=== PATIENT | female | born 1935 | race Caucasian/White ===

== ENCOUNTER 2016-09-18 10:54 | Inpatient (IN) | payer MEDICARE, OTHER ==
[~2016-09-18] VITALS: Ht 132.1 cm; Wt 44.4 kg
[2016-09-18 11:45] VITALS: BP 118/90
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
[2016-09-18] MEDS ORDERED: LIDO5DIS41 TD (12:59)
[2016-09-18] MEDS ORDERED: ALBU17IN INH ×2 (12:59→13:16)
[2016-09-18] MEDS ORDERED: PREDOPD OU (12:59)
[2016-09-18] MEDS ORDERED: MIRA33504 PO (12:59)
[2016-09-18] MEDS ORDERED: ASPI81CH PO (12:59)
[2016-09-18] MEDS ORDERED: EYECAP PO (13:16)
[2016-09-18] MEDS ORDERED: GLUC15002 PO (13:16)
[2016-09-18] MEDS ORDERED: LASI20TA PO (13:16)
[2016-09-18] MEDS ORDERED: POTA20TA PO (13:16)
[2016-09-18] MEDS ORDERED: ADVA115A INH (13:16)
[2016-09-18] MEDS ORDERED: OXYC-517 PO (13:16)
[2016-09-18] MEDS ORDERED: SENN1TAB10 PO (13:16)
[2016-09-18] MEDS ORDERED: PANT40TA2 PO (13:16)
[2016-09-18] MEDS ORDERED: PROL60SO SC (13:16)
[2016-09-18] MEDS ORDERED: LORA10TA2 PO (13:16)
[2016-09-18] MEDS ORDERED: GARL400T2 PO (13:16)
[2016-09-18] MEDS ORDERED: TYLE325T5 PO (13:16)
[2016-09-18] MEDS ORDERED: EPIN1DRO OU (13:16)
[2016-09-18] MEDS ORDERED: OMEG100011 PO (13:16)
[2016-09-18] MEDS ORDERED: LECI1200 PO (13:16)
[2016-09-18] MEDS ORDERED: VITMTA PO (13:16)
[2016-09-18] MEDS ORDERED: COLA100C5 PO (13:16)
[2016-09-18] MEDS ORDERED: CALC1TAB63 PO (13:16)
[2016-09-18] MEDS ORDERED: LOVE1INJ2 SC (13:16)
[2016-09-18] MEDS ORDERED: MELA1TAB PO (13:16)
[2016-09-18] MEDS ORDERED: VITATAB11 PO (13:19)
[2016-09-18] MEDS ORDERED: VITA500T88 PO (13:19)
[2016-09-18] MEDS ORDERED: RANI150T PO (13:19)
[2016-09-18] MEDS ORDERED: [UNRECOGNIZED DRUG - CODE] PO (13:19)
[2016-09-18] MEDS ORDERED: TARTCAP PO (13:19)
[2016-09-18] MEDS ORDERED: VITA200015 PO (13:19)
[2016-09-18 14:00] VITALS: BP 146/64
[2016-09-18] MEDS: oxyCODONE 5MG TAB PO PRN ×2 (15:41→22:14)
[2016-09-18] MEDS: prednisoLONE ACET 1% OPHTH SUSP 5ML OU SCH ×2 (17:16→20:05)
[2016-09-18] MEDS: ALBUTEROL 90 MCG/ACT 8GM HFA INHALER INH PRN (17:29)
[2016-09-18] MEDS: ADVAIR HFA 115/21MCG INHALER INH SCH (19:43)
[2016-09-18] MEDS: ALBUTEROL 90 MCG/ACT 8GM HFA INHALER INH SCH (19:44)
[2016-09-18 20:00] VITALS: BP 127/55
[2016-09-18] MEDS: ACETAMINOPHEN TAB 650MG DOSE (2X325MG) PO PRN (20:03)
[2016-09-18] MEDS: METOPROLOL SUCC *XL* 12.5MG PER 1/2 TAB (TopROL *XL*) PO SCH (20:04)
[2016-09-18] MEDS: ENOXAPARIN 30 MG/0.3 ML SYR (J1650) SC SCH (20:04)
[2016-09-18] MEDS: SENNA 8.6 MG TAB (SENOKOT) PO SCH (20:04)
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
[2016-09-19 04:39] VITALS: BP 143/74
[2016-09-19 06:48] LABS: BASO % 0.4 % (0.0-1.0); EOS # 0.5 K/mm3 (0.0-0.50); EOS % 6.5 % (0.0-3.0); LARGE UNSTAINED CELL # 0.3 K/mm3 (0.0-0.4); LARGE UNSTAINED CELL % 3.6 % (0.0-4.0); LYMPH # 1.7 K/mm3 (1.5-4.5); LYMPH % 22.6 % (24.0-44.0); MEAN CORPUSCULAR HEMOGLOBIN 30.8 pg (27.0-33.0); MEAN CORPUSCULAR HGB CONC 33.6 g/dl (32.0-36.5); MEAN CORPUSCULAR VOLUME 91.7 fl (80.0-96.0); MONO # 0.5 K/mm3 (0.0-0.8); MONO % 6.7 % (0.0-5.0); NEUTROPHILS # 4.4 K/mm3 (1.8-7.7); NEUTROPHILS % 60.1 % (36.0-66.0); PLATELET COUNT, AUTOMATED 445 k/mm3 (150-450); RED CELL DISTRIBUTION WIDTH 13.6 % (11.5-14.5); WHITE BLOOD COUNT 7.3 K/mm3 (4.0-10.0)
[2016-09-19 07:05] LABS: ALBUMIN 2.5 GM/DL (3.2-5.2); ALBUMIN/GLOBULIN RATIO 0.64 (1.00-1.93); ALKALINE PHOSPHATASE 78 U/L (45-117); ALT/SGPT 104 U/L (12-78); ANION GAP 6 MEQ/L (8-16); AST/SGOT 85 U/L (15-37); BILIRUBIN,TOTAL 0.2 MG/DL (0.2-1.0); BLOOD UREA NITROGEN 11 MG/DL (7-18); CALCIUM LEVEL 8.8 MG/DL (8.8-10.2); CARBON DIOXIDE LEVEL 28 MEQ/L (21-32); CHLORIDE LEVEL 94 MEQ/L (98-107); CREATININE FOR GFR 0.49 MG/DL (0.55-1.02); GLOMERULAR FILTRATION RATE > 60.0 (>32); GLUCOSE, FASTING 84 MG/DL (83-110); POTASSIUM SERUM 4.3 MEQ/L (3.5-5.1); SODIUM LEVEL 128 MEQ/L (136-145); TOTAL PROTEIN 6.4 GM/DL (6.4-8.2)
[2016-09-19] MEDS: ADVAIR HFA 115/21MCG INHALER INH SCH ×2 (07:28→19:35)
[2016-09-19] MEDS: SENNA 8.6 MG TAB (SENOKOT) PO SCH ×2 (08:49→21:49)
[2016-09-19] MEDS: CALCIUM/VITAMIN D 500 MG TAB PO SCH (08:49)
[2016-09-19] MEDS: MULTIVITAMINS/MINERALS THERAP 1 TAB PO SCH (08:49)
[2016-09-19] MEDS: OMEPRAZOLE 20 MG CAP PO SCH (08:49)
[2016-09-19] MEDS: LORATADINE 10 MG TAB PO SCH (08:50)
[2016-09-19] MEDS: FUROSEMIDE 20 MG TAB PO SCH (08:50)
[2016-09-19] MEDS: ENOXAPARIN 30 MG/0.3 ML SYR (J1650) SC SCH ×2 (08:50→21:50)
[2016-09-19] MEDS: OMEGA-3 1050MG CAPSULE PO SCH (08:50)
[2016-09-19] MEDS: ASPIRIN 81 MG ENTERIC TAB PO SCH (08:50)
[2016-09-19] MEDS: VITAMIN B COMPLEX/VIT C CAP PO SCH (08:51)
[2016-09-19] MEDS: POTASSIUM CHLORIDE 10 MEQ SR TABLET PO SCH (08:51)
[2016-09-19] MEDS: VITAMIN D 1,000 INTERNATIONAL UNITS TABLET PO SCH (08:51)
[2016-09-19] MEDS: MIRALAX *UNIT DOSE* 17GM PACKET PO SCH (08:52)
[2016-09-19] MEDS: METOPROLOL SUCC *XL* 12.5MG PER 1/2 TAB (TopROL *XL*) PO SCH ×2 (08:52→21:49)
[2016-09-19] MEDS: prednisoLONE ACET 1% OPHTH SUSP 5ML OU SCH ×4 (09:25→21:50)
[2016-09-19 11:42] LABS: OSMOLALITY URINE 229 MOSM/KG (500-800)
[2016-09-19 11:55] LABS: CORTISOL BASELINE 14.2 UG/DL (4.3-22.4)
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
[2016-09-19 14:00] VITALS: BP 122/65
[2016-09-19] MEDS ORDERED: COSYNTROPIN 0.25 MG/ML VIAL (J0835) IV ONE (14:00)
--- NOTE | 2016-09-19 14:30 | IPNPDOC ---
Subjective Date Seen The patient was seen on 09/19/16. Subjective Chief Complaint/HPI The patient is a 81-year-old female admitted with a reason for visit of TBI. Events since last encounter Feeling ok, has cough, worked with therapy, tolerating diet, no complaint except to ask for tissues Constitutional: Denies: Chills, Fever Pulmonary: Reports: Cough, Denies: Dyspnea Cardiovascular: Denies: Chest Pain, Palpitations Gastrointestinal: Denies: Nausea, Vomiting, Abdominal Pain Objective Physical Examination General Exam: Positive: Alert, Cooperative, No Acute Distress ENT Exam: Positive: Pharynx Normal Chest Exam: Positive: Diminished, Negative: Rales, Rhonchi, Wheezing Heart Exam: Positive: Rate Normal, Regular Rhythm, Normal S1, Normal S2 Abdomen Exam: Positive: Normal bowel sounds, Soft, Negative: Tenderness Extremity Exam: Negative: Edema Assessment /Plan Problems (1) Hyponatremia Status: Acute Problem Text: Possible adrenal insufficiency- cosyntropin stim test order sick euthyroid Less likely cerebral salt wasting on diuretic (2) PAF (paroxysmal atrial fibrillation) Status: Chronic Problem Text: noted in [place] on asa (3) Closed TBI (traumatic brain injury) Status: Acute (4) Ribs, multiple fractures Status: Acute (5) Fracture, thoracic vertebra, compression Status: Acute (6) Fracture of spinous process of thoracic vertebra Status: Acute (7) Right pulmonary contusion Status: Acute Problem Text: history of asthma, has cough, order incentive spirometry (8) SDH (subdural hematoma) Status: Acute (9) HTN (hypertension) Status: Chronic Plan/VTE VTE Prophylaxis Ordered?: Yes VS, I&O, 24H, [facility] Vital Signs/I&O Vital Signs Date Time Temp Pulse Resp B/P (MAP) Pulse Ox O2 Delivery O2 Flow Rate FiO2 09/19/16 09:00 Room Air 09/19/16 08:52 78 143/74 09/19/16 04:39 97.5 18 97 I&O- Last 24 Hours up to 6 AM 09/19/16 06:00 Intake Total 1130 ml Output Total 2475 ml Balance -1345 ml Laboratory Data 24H LABS Laboratory Tests 2 09/18/16 15:18: Urine Appearance CLEAR, Urine Color STRAW, Urine pH 6.0, Urine Specific [place] 1.008, Urine Protein NEGATIVE, Urine Glucose (UA) NEGATIVE, Urine Ketones NEGATIVE, Urine Urobilinogen 0.2, Urine Bilirubin NEGATIVE, Urine Leukocyte Esterase 1+H, Urine Blood NEGATIVE, Urine Nitrite NEGATIVE, Urine WBC (Auto) 5H , Urine RBC (Auto) 1, Urine Hyaline Casts (Auto) 0, Urine Bacteria (Auto) NEGATIVE, Urine Squamous Epithelial Cells 0, Urine Mucus (Auto) SMALL, Urine Sperm (Auto) 09/19/16 06:20: White Blood Count 7.3, Red Blood Count 2.87L, Hemoglobin 8.8L, Hematocrit 26.3L , Mean Corpuscular Volume 91.7, Mean Corpuscular Hemoglobin 30.8, Mean Corpuscular Hemoglobin Concent 33.6, Red Cell Distribution Width 13.6, Platelet Count 445, Neutrophils (%) (Auto) 60.1, Lymphocytes (%) (Auto) 22.6L, Monocytes (%) (Auto) 6.7H, Eosinophils (%) (Auto) 6.5H, Basophils (%) (Auto) 0.4, Neutrophils # (Auto) 4.4, Lymphocytes # (Auto) 1.7, Monocytes # (Auto) 0.5, Eosinophils # (Auto) 0.5, Basophils # (Auto) 0.0, Large Unclassified Cells % 3.6 , Large Unclassified Cells # 0.3, Anion Gap 6L, Glomerular Filtration Rate > 60.0, Blood Urea Nitrogen 11, Creatinine 0.49L, Sodium Level 128L, Potassium Level 4.3, Chloride Level 94L, Carbon Dioxide Level 28, Calcium Level 8.8, Aspartate Amino Transf (AST/SGOT) 85H, Alanine Aminotransferase (ALT/SGPT) 104H , Alkaline Phosphatase 78, Total Bilirubin 0.2, Total Protein 6.4, Albumin 2.5L , Albumin/Globulin Ratio 0.64L, Thyroid Stimulating Hormone (TSH) 4.300H 09/19/16 10:52: Osmolality 267L, Cortisol Response to Stimulation (T 14.2 09/19/16 11:20: Urine Random Osmolality 229L, Urine Random Sodium 43 09/19/16 13:52: CBC/BMP Laboratory Tests 09/19/16 06:20 Red Blood Count 2.87 L, Mean Corpuscular Volume 91.7, Mean Corpuscular Hemoglobin 30.8, Mean Corpuscular Hemoglobin Concent 33.6, Red Cell Distribution Width 13.6, Neutrophils (%) (Auto) 60.1, Lymphocytes (%) (Auto) 22.6 L, Monocytes (%) (Auto) 6.7 H, Eosinophils (%) (Auto) 6.5 H, Basophils (%) (Auto) 0.4, Neutrophils # (Auto) 4.4, Lymphocytes # (Auto) 1.7, Monocytes # ( Auto) 0.5, Eosinophils # (Auto) 0.5, Basophils # (Auto) 0.0, Calcium Level 8.8, Aspartate Amino Transf (AST/SGOT) 85 H, Alanine Aminotransferase (ALT/SGPT) 104 H, Alkaline Phosphatase 78, Total Bilirubin 0.2, Total Protein 6.4, Albumin 2.5 L ANNE ALEXANDER MD September 19, 2016 14:30
[2016-09-19 14:36] LABS: FREE T4 0.96 NG/DL (0.76-1.46)
[2016-09-19] MEDS: oxyCODONE 5MG TAB PO PRN (15:23)
[2016-09-19] MEDS: ALBUTEROL 90 MCG/ACT 8GM HFA INHALER INH SCH (19:31)
--- NOTE | 2016-09-19 19:41 | ECGEPIP ---
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 ABNORMAL RHYTHM ECG Electronically Signed On 09-19-2016 19:41:22 EDT by Rashi Paz
[2016-09-19 20:00] VITALS: BP 119/81
[2016-09-20] MEDS: ACETAMINOPHEN TAB 650MG DOSE (2X325MG) PO PRN ×4 (00:37→23:14)
[2016-09-20] MEDS: oxyCODONE 5MG TAB PO PRN (05:14)
[2016-09-20 06:00] VITALS: BP 155/68
[2016-09-20 06:34] LABS: MEAN CORPUSCULAR HEMOGLOBIN 30.6 pg (27.0-33.0); MEAN CORPUSCULAR HGB CONC 32.8 g/dl (32.0-36.5); MEAN CORPUSCULAR VOLUME 93.1 fl (80.0-96.0); RED CELL DISTRIBUTION WIDTH 13.7 % (11.5-14.5); WHITE BLOOD COUNT 10.7 K/mm3 (4.0-10.0)
[2016-09-20 06:41] LABS: ANION GAP 8 MEQ/L (8-16); BLOOD UREA NITROGEN 13 MG/DL (7-18); CARBON DIOXIDE LEVEL 28 MEQ/L (21-32); CHLORIDE LEVEL 93 MEQ/L (98-107); GLOMERULAR FILTRATION RATE > 60.0 (>32); GLUCOSE, FASTING 85 MG/DL (83-110); POTASSIUM SERUM 4.2 MEQ/L (3.5-5.1); SODIUM LEVEL 129 MEQ/L (136-145)
[2016-09-20] MEDS: OMEGA-3 1050MG CAPSULE PO SCH (08:58)
[2016-09-20] MEDS: CALCIUM/VITAMIN D 500 MG TAB PO SCH (08:58)
[2016-09-20] MEDS: ENOXAPARIN 30 MG/0.3 ML SYR (J1650) SC SCH ×2 (08:58→21:52)
[2016-09-20] MEDS: OMEPRAZOLE 20 MG CAP PO SCH (08:58)
[2016-09-20] MEDS: MIRALAX *UNIT DOSE* 17GM PACKET PO SCH (08:58)
[2016-09-20] MEDS: ASPIRIN 81 MG ENTERIC TAB PO SCH (08:59)
[2016-09-20] MEDS: LORATADINE 10 MG TAB PO SCH (08:59)
[2016-09-20] MEDS: VITAMIN B COMPLEX/VIT C CAP PO SCH (08:59)
[2016-09-20] MEDS: SENNA 8.6 MG TAB (SENOKOT) PO SCH ×2 (08:59→21:52)
[2016-09-20] MEDS: FUROSEMIDE 20 MG TAB PO SCH (08:59)
[2016-09-20] MEDS: POTASSIUM CHLORIDE 10 MEQ SR TABLET PO SCH (08:59)
[2016-09-20] MEDS: METOPROLOL SUCC *XL* 12.5MG PER 1/2 TAB (TopROL *XL*) PO SCH ×2 (09:00→21:00)
[2016-09-20] MEDS: VITAMIN D 1,000 INTERNATIONAL UNITS TABLET PO SCH (09:00)
[2016-09-20] MEDS: MULTIVITAMINS/MINERALS THERAP 1 TAB PO SCH (09:00)
[2016-09-20] MEDS: prednisoLONE ACET 1% OPHTH SUSP 5ML OU SCH ×4 (09:00→21:53)
[2016-09-20] MEDS: ADVAIR HFA 115/21MCG INHALER INH SCH ×2 (10:03→20:17)
[2016-09-20] MEDS: ALBUTEROL 90 MCG/ACT 8GM HFA INHALER INH SCH ×2 (10:04→20:17)
--- NOTE | 2016-09-20 11:29 | IPNPDOC ---
Subjective Date Seen The patient was seen on 09/20/16. Subjective Chief Complaint/HPI The patient is a 81-year-old female admitted with a reason for visit of TBI. Events since last encounter Feeling well, no complaint, wants to dance again, grand-daughter at bedside thinks she looks more energetic Constitutional: Denies: Chills, Fever Pulmonary: Denies: Dyspnea, Cough Cardiovascular: Denies: Chest Pain, Palpitations Gastrointestinal: Reports: Constipation, Denies: Nausea, Vomiting Objective Physical Examination General Exam: Positive: Alert, Cooperative, No Acute Distress ENT Exam: Positive: Atraumatic Chest Exam: Positive: Other (rested, speaking in completed sentences, no accessory muscle use) Assessment /Plan Problems (1) Hyponatremia Status: Acute Problem Text: No adrenal insufficiency- based on cosyntropin stim test sick euthyroid Less likely cerebral salt wasting on diuretic Possible SIADH or similar related to head trauma- will avoid fluid restriction currently due to concern about recent head trauma/vasospasm Follow labs (2) PAF (paroxysmal atrial fibrillation) Status: Chronic Problem Specific Plan: Monitor Clinically Problem Text: noted in [place] on asa (3) Closed TBI (traumatic brain injury) Status: Acute (4) Ribs, multiple fractures Status: Acute Problem Text: pain reasonably controlled (5) Fracture, thoracic vertebra, compression Status: Acute (6) Fracture of spinous process of thoracic vertebra Status: Acute (7) Right pulmonary contusion Status: Acute Problem Text: history of asthma, has cough, order incentive spirometry (8) SDH (subdural hematoma) Status: Acute (9) HTN (hypertension) Status: Chronic (10) Constipation Plan/VTE VTE Prophylaxis Ordered?: Yes VS, I&O, 24H, [facility] Vital Signs/I&O Vital Signs Date Time Temp Pulse Resp B/P (MAP) Pulse Ox O2 Delivery O2 Flow Rate FiO2 09/20/16 09:00 75 155/68 09/20/16 08:30 Room Air 09/20/16 06:00 98.9 18 97 I&O- Last 24 Hours up to 6 AM 09/20/16 06:00 Intake Total 1620 ml Output Total 2200 ml Balance -580 ml Laboratory Data 24H LABS Bad tableCBC/BMP Laboratory Tests 09/20/16 06:16 Red Blood Count 2.87 L, Mean Corpuscular Volume 93.1, Mean Corpuscular Hemoglobin 30.6, Mean Corpuscular Hemoglobin Concent 32.8, Red Cell Distribution Width 13.7, Calcium Level 9.0 ANNE ALEXANDER MD September 20, 2016 11:29
[2016-09-20] MEDS ORDERED: MOM 30ML SUSPENSION UDC PO PRN (11:30)
[2016-09-20] MEDS ORDERED: FLEET ENEMA PR PRN (11:30)
[2016-09-20] MEDS ORDERED: BISACODYL 10 MG SUPP PR PRN (11:30)
[2016-09-20] MEDS: ALBUTEROL 90 MCG/ACT 8GM HFA INHALER INH PRN (12:20)
[2016-09-20 14:25] VITALS: BP 128/60
[2016-09-20 22:00] VITALS: BP 110/53
[2016-09-21] MEDS: ACETAMINOPHEN TAB 650MG DOSE (2X325MG) PO PRN ×3 (04:07→17:40)
[2016-09-21 06:00] VITALS: BP 148/67
[2016-09-21 06:43] LABS: MEAN CORPUSCULAR HEMOGLOBIN 30.1 pg (27.0-33.0); MEAN CORPUSCULAR HGB CONC 32.2 g/dl (32.0-36.5); MEAN CORPUSCULAR VOLUME 93.3 fl (80.0-96.0); RED CELL DISTRIBUTION WIDTH 13.8 % (11.5-14.5)
[2016-09-21 06:55] LABS: ANION GAP 7 MEQ/L (8-16); BLOOD UREA NITROGEN 18 MG/DL (7-18); CALCIUM LEVEL 8.5 MG/DL (8.8-10.2); CARBON DIOXIDE LEVEL 28 MEQ/L (21-32); CHLORIDE LEVEL 94 MEQ/L (98-107); CREATININE FOR GFR 0.62 MG/DL (0.55-1.02); GLOMERULAR FILTRATION RATE > 60.0 (>32); GLUCOSE, FASTING 82 MG/DL (83-110); POTASSIUM SERUM 4.6 MEQ/L (3.5-5.1); SODIUM LEVEL 129 MEQ/L (136-145)
[2016-09-21] MEDS: ADVAIR HFA 115/21MCG INHALER INH SCH ×2 (08:29→19:29)
[2016-09-21] MEDS: ALBUTEROL 90 MCG/ACT 8GM HFA INHALER INH SCH ×2 (08:29→19:29)
[2016-09-21] MEDS: ENOXAPARIN 30 MG/0.3 ML SYR (J1650) SC SCH ×2 (08:49→20:27)
[2016-09-21] MEDS: prednisoLONE ACET 1% OPHTH SUSP 5ML OU SCH ×4 (09:02→20:28)
[2016-09-21] MEDS: MIRALAX *UNIT DOSE* 17GM PACKET PO SCH (09:05)
[2016-09-21] MEDS: OMEPRAZOLE 20 MG CAP PO SCH (09:07)
[2016-09-21] MEDS: VITAMIN D 1,000 INTERNATIONAL UNITS TABLET PO SCH (09:07)
[2016-09-21] MEDS: SENNA 8.6 MG TAB (SENOKOT) PO SCH ×2 (09:07→18:54)
[2016-09-21] MEDS: VITAMIN B COMPLEX/VIT C CAP PO SCH (09:07)
[2016-09-21] MEDS: ASPIRIN 81 MG ENTERIC TAB PO SCH (09:07)
[2016-09-21] MEDS: LORATADINE 10 MG TAB PO SCH (09:07)
[2016-09-21] MEDS: METOPROLOL SUCC *XL* 12.5MG PER 1/2 TAB (TopROL *XL*) PO SCH ×2 (09:08→20:26)
[2016-09-21] MEDS: OMEGA-3 1050MG CAPSULE PO SCH (09:08)
[2016-09-21] MEDS: POTASSIUM CHLORIDE 10 MEQ SR TABLET PO SCH (09:08)
[2016-09-21] MEDS: CALCIUM/VITAMIN D 500 MG TAB PO SCH (09:08)
[2016-09-21] MEDS: MULTIVITAMINS/MINERALS THERAP 1 TAB PO SCH (09:08)
[2016-09-21] MEDS: FUROSEMIDE 20 MG TAB PO SCH (09:09)
[2016-09-21 14:00] VITALS: BP 125/66
[2016-09-21 20:00] VITALS: BP 130/58
[2016-09-22] MEDS: oxyCODONE 5MG TAB PO PRN ×2 (04:22→10:40)
[2016-09-22 06:00] VITALS: BP 152/62
[2016-09-22 06:26] LABS: MEAN CORPUSCULAR HEMOGLOBIN 30.5 pg (27.0-33.0); MEAN CORPUSCULAR HGB CONC 32.6 g/dl (32.0-36.5); MEAN CORPUSCULAR VOLUME 93.5 fl (80.0-96.0); RED CELL DISTRIBUTION WIDTH 13.9 % (11.5-14.5); WHITE BLOOD COUNT 11.9 K/mm3 (4.0-10.0)
[2016-09-22 06:39] LABS: ANION GAP 7 MEQ/L (8-16); BLOOD UREA NITROGEN 16 MG/DL (7-18); CALCIUM LEVEL 8.5 MG/DL (8.8-10.2); CARBON DIOXIDE LEVEL 27 MEQ/L (21-32); CHLORIDE LEVEL 96 MEQ/L (98-107); CREATININE FOR GFR 0.55 MG/DL (0.55-1.02); GLOMERULAR FILTRATION RATE > 60.0 (>32); GLUCOSE, FASTING 83 MG/DL (83-110); POTASSIUM SERUM 4.4 MEQ/L (3.5-5.1); SODIUM LEVEL 130 MEQ/L (136-145)
[2016-09-22] MEDS: ADVAIR HFA 115/21MCG INHALER INH SCH ×2 (08:17→19:35)
[2016-09-22] MEDS: ALBUTEROL 90 MCG/ACT 8GM HFA INHALER INH SCH ×2 (08:17→21:00)
[2016-09-22] MEDS: ENOXAPARIN 30 MG/0.3 ML SYR (J1650) SC SCH ×2 (08:23→21:12)
[2016-09-22] MEDS: prednisoLONE ACET 1% OPHTH SUSP 5ML OU SCH ×4 (08:23→21:12)
[2016-09-22] MEDS: LORATADINE 10 MG TAB PO SCH (08:24)
[2016-09-22] MEDS: MULTIVITAMINS/MINERALS THERAP 1 TAB PO SCH (08:24)
[2016-09-22] MEDS: CALCIUM/VITAMIN D 500 MG TAB PO SCH (08:24)
[2016-09-22] MEDS: METOPROLOL SUCC *XL* 12.5MG PER 1/2 TAB (TopROL *XL*) PO SCH ×2 (08:24→21:12)
[2016-09-22] MEDS: ASPIRIN 81 MG ENTERIC TAB PO SCH (08:24)
[2016-09-22] MEDS: VITAMIN B COMPLEX/VIT C CAP PO SCH (08:24)
[2016-09-22] MEDS: OMEPRAZOLE 20 MG CAP PO SCH (08:24)
[2016-09-22] MEDS: POTASSIUM CHLORIDE 10 MEQ SR TABLET PO SCH (08:25)
[2016-09-22] MEDS: MIRALAX *UNIT DOSE* 17GM PACKET PO SCH (08:25)
[2016-09-22] MEDS: VITAMIN D 1,000 INTERNATIONAL UNITS TABLET PO SCH (08:25)
[2016-09-22] MEDS: SENNA 8.6 MG TAB (SENOKOT) PO SCH ×2 (08:25→21:00)
[2016-09-22] MEDS: FUROSEMIDE 20 MG TAB PO SCH (08:25)
[2016-09-22] MEDS: OMEGA-3 1050MG CAPSULE PO SCH (08:26)
[2016-09-22 09:20] LABS: OSMOLALITY URINE 331 MOSM/KG (500-800)
--- NOTE | 2016-09-22 13:28 | IPNPDOC ---
Subjective Date Seen The patient was seen on 09/22/16. Subjective Chief Complaint/HPI The patient is a 81-year-old female admitted with a reason for visit of TBI. Events since last encounter Feeling well, working with therapy, has increased urinary frequency, tolerating diet Constitutional: Denies: Chills Pulmonary: Denies: Dyspnea, Cough Cardiovascular: Denies: Chest Pain, Palpitations Gastrointestinal: Denies: Nausea, Vomiting, Abdominal Pain Objective Physical Examination General Exam: Positive: Alert, Cooperative, No Acute Distress ENT Exam: Positive: Atraumatic Chest Exam: Positive: Other (rested, speaking in completed sentences, no accessory muscle use) Assessment /Plan Problems (1) Hyponatremia Status: Acute Problem Text: No adrenal insufficiency- based on cosyntropin stim test sick euthyroid Less likely cerebral salt wasting on diuretic Possible SIADH or similar related to head trauma- will avoid fluid restriction currently due to concern about recent head trauma/vasospasm Follow labs, and i/os (2) PAF (paroxysmal atrial fibrillation) Status: Chronic Problem Specific Plan: Monitor Clinically Problem Text: regular on exam, noted in [place] on asa (3) Closed TBI (traumatic brain injury) Status: Acute (4) Ribs, multiple fractures Status: Acute Problem Text: pain reasonably controlled (5) Fracture, thoracic vertebra, compression Status: Acute (6) Fracture of spinous process of thoracic vertebra Status: Acute (7) Right pulmonary contusion Status: Acute Problem Text: history of asthma, has cough, order incentive spirometry (8) SDH (subdural hematoma) Status: Acute (9) HTN (hypertension) Status: Chronic (10) Constipation Plan/VTE VTE Prophylaxis Ordered?: Yes VS, I&O, 24H, [facility] Vital Signs/I&O Vital Signs Date Time Temp Pulse Resp B/P (MAP) Pulse Ox O2 Delivery O2 Flow Rate FiO2 09/22/16 11:15 18 09/22/16 09:00 Room Air 09/22/16 08:24 79 152/62 09/22/16 06:00 98.9 96 I&O- Last 24 Hours up to 6 AM 09/22/16 06:00 Intake Total 1930 ml Output Total 2350 ml Balance -420 ml Laboratory Data 24H LABS Laboratory Tests 2 09/22/16 06:06: Anion Gap 7L, Glomerular Filtration Rate > 60.0, Blood Urea Nitrogen 16, Creatinine 0.55, Sodium Level 130L, Potassium Level 4.4, Chloride Level 96L, Carbon Dioxide Level 27, Calcium Level 8.5L 09/22/16 08:47: Urine Appearance CLEAR, Urine Color STRAW, Urine pH 8.0, Urine Specific [place] 1.008, Urine Protein NEGATIVE, Urine Glucose (UA) NEGATIVE, Urine Ketones NEGATIVE, Urine Urobilinogen 0.2, Urine Bilirubin NEGATIVE, Urine Leukocyte Esterase TRACEH, Urine Blood NEGATIVE, Urine Nitrite NEGATIVE, Urine WBC (Auto) 2, Urine RBC (Auto) 1, Urine Hyaline Casts (Auto) 0, Urine Bacteria (Auto) 1+H, Urine Squamous Epithelial Cells 0, Urine Sperm (Auto) , Urine Random Osmolality 331L, Urine Random Sodium 63 CBC/BMP Laboratory Tests 09/22/16 06:06 Red Blood Count 2.67 L, Mean Corpuscular Volume 93.5, Mean Corpuscular Hemoglobin 30.5, Mean Corpuscular Hemoglobin Concent 32.6, Red Cell Distribution Width 13.9, Calcium Level 8.5 L ANNE ALEXANDER MD September 22, 2016 13:28
[2016-09-22 14:00] VITALS: BP 114/57
[2016-09-22 20:00] VITALS: BP 147/63
[2016-09-23] MEDS: oxyCODONE 5MG TAB PO PRN ×3 (04:40→21:48)
[2016-09-23 06:00] VITALS: BP 150/61
[2016-09-23 06:02] LABS: MEAN CORPUSCULAR HEMOGLOBIN 30.7 pg (27.0-33.0); MEAN CORPUSCULAR HGB CONC 32.7 g/dl (32.0-36.5); MEAN CORPUSCULAR VOLUME 93.8 fl (80.0-96.0)
[2016-09-23 06:18] LABS: ANION GAP 7 MEQ/L (8-16); BLOOD UREA NITROGEN 18 MG/DL (7-18); CALCIUM LEVEL 9.1 MG/DL (8.8-10.2); CARBON DIOXIDE LEVEL 29 MEQ/L (21-32); CHLORIDE LEVEL 97 MEQ/L (98-107); CREATININE FOR GFR 0.58 MG/DL (0.55-1.02); GLOMERULAR FILTRATION RATE > 60.0 (>32); GLUCOSE, FASTING 87 MG/DL (83-110); POTASSIUM SERUM 4.4 MEQ/L (3.5-5.1); SODIUM LEVEL 133 MEQ/L (136-145)
[2016-09-23] MEDS: ADVAIR HFA 115/21MCG INHALER INH SCH ×2 (07:13→19:51)
[2016-09-23] MEDS: ALBUTEROL 90 MCG/ACT 8GM HFA INHALER INH SCH ×2 (07:13→21:49)
[2016-09-23] MEDS: OMEPRAZOLE 20 MG CAP PO SCH (09:01)
[2016-09-23] MEDS: ASPIRIN 81 MG ENTERIC TAB PO SCH (09:01)
[2016-09-23] MEDS: MULTIVITAMINS/MINERALS THERAP 1 TAB PO SCH (09:01)
[2016-09-23] MEDS: FUROSEMIDE 20 MG TAB PO SCH (09:01)
[2016-09-23] MEDS: ENOXAPARIN 30 MG/0.3 ML SYR (J1650) SC SCH ×2 (09:01→21:48)
[2016-09-23] MEDS: SENNA 8.6 MG TAB (SENOKOT) PO SCH ×2 (09:01→21:48)
[2016-09-23] MEDS: OMEGA-3 1050MG CAPSULE PO SCH (09:01)
[2016-09-23] MEDS: VITAMIN D 1,000 INTERNATIONAL UNITS TABLET PO SCH (09:01)
[2016-09-23] MEDS: METOPROLOL SUCC *XL* 12.5MG PER 1/2 TAB (TopROL *XL*) PO SCH ×2 (09:02→21:49)
[2016-09-23] MEDS: POTASSIUM CHLORIDE 10 MEQ SR TABLET PO SCH (09:02)
[2016-09-23] MEDS: CALCIUM/VITAMIN D 500 MG TAB PO SCH (09:02)
[2016-09-23] MEDS: LORATADINE 10 MG TAB PO SCH (09:02)
[2016-09-23] MEDS: VITAMIN B COMPLEX/VIT C CAP PO SCH (09:02)
[2016-09-23] MEDS: prednisoLONE ACET 1% OPHTH SUSP 5ML OU SCH ×4 (09:03→21:48)
--- NOTE | 2016-09-23 11:09 | IPNPDOC ---
Subjective Date Seen The patient was seen on 09/23/16. Subjective Chief Complaint/HPI The patient is a 81-year-old female admitted with a reason for visit of TBI. Events since last encounter Pt currently with PT. States since this AM she has had some Left shoulder pain. She does not c/o pain otherwise. ENT: Denies: Head Aches, Dysphagia Pulmonary: Denies: Dyspnea, Cough Cardiovascular: Denies: Chest Pain, Palpitations, Orthopnea, Paroxysmal Noc. Dyspnea, Lt Headedness Gastrointestinal: Denies: Nausea, Vomiting, Abdominal Pain, Diarrhea, Constipation Genitourinary: Denies: Dysuria, Frequency, Incontinence, Retention Objective Physical Examination General Exam: Positive: Alert, Cooperative, No Acute Distress ENT Exam: Positive: Atraumatic Chest Exam: Positive: Clear to auscultation, Other (rested, speaking in completed sentences, no accessory muscle use) Heart Exam: Positive: Rate Normal Assessment /Plan Problems (1) Hyponatremia Status: Acute Problem Text: No adrenal insufficiency- based on cosyntropin stim test sick euthyroid Less likely cerebral salt wasting on diuretic Possible SIADH or similar related to head trauma- will avoid fluid restriction currently due to concern about recent head trauma/vasospasm Follow labs, and i/os labs improved today- monitor. (2) PAF (paroxysmal atrial fibrillation) Status: Chronic Problem Specific Plan: Monitor Clinically Problem Text: PAF noted in [place] regular on exam, rates in 70s asa 81mg Metoprolol 12.5 BID with hold parameters. (3) Closed TBI (traumatic brain injury) Status: Acute (4) Ribs, multiple fractures Status: Acute Problem Text: pain reasonably controlled (5) Fracture, thoracic vertebra, compression Status: Acute (6) Fracture of spinous process of thoracic vertebra Status: Acute (7) Right pulmonary contusion Status: Acute Problem Text: history of asthma, has cough, order incentive spirometry (8) SDH (subdural hematoma) Status: Acute (9) HTN (hypertension) Status: Chronic Problem Text: * Lasix/Metoprolol. * BP 114/57-150/61 * monitor. (10) Constipation Plan/VTE VTE Prophylaxis Ordered?: Yes VS, I&O, 24H, [facility] Vital Signs/I&O Vital Signs Date Time Temp Pulse Resp B/P (MAP) Pulse Ox O2 Delivery O2 Flow Rate FiO2 09/23/16 09:02 79 150/61 09/23/16 09:00 Room Air 09/23/16 06:00 98.9 18 95 I&O- Last 24 Hours up to 6 AM 09/23/16 05:59 Intake Total 1150 ml Output Total 50 ml Balance 1100 ml Laboratory Data 24H LABS Laboratory Tests 2 09/23/16 05:50: Anion Gap 7L, Glomerular Filtration Rate > 60.0, Blood Urea Nitrogen 18, Creatinine 0.58, Sodium Level 133L, Potassium Level 4.4, Chloride Level 97L, Carbon Dioxide Level 29, Calcium Level 9.1 CBC/BMP Laboratory Tests 09/23/16 05:50 Red Blood Count 2.69 L, Mean Corpuscular Volume 93.8, Mean Corpuscular Hemoglobin 30.7, Mean Corpuscular Hemoglobin Concent 32.7, Red Cell Distribution Width 14.0, Calcium Level 9.1 Yulia Aguillon September 23, 2016 11:09
--- NOTE | 2016-09-23 13:00 | IPNPDOC ---
[employer] Progress Note DATE OF SERVICE: 09/23/16 DATE OF ADMISSION: September 18, 2016 at 11:16 INPATIENT REHABILITATION ADMISSION DAY: #5 SUBJECTIVE: Patient is a 81-year-old white female with will try including subdural hematoma, T1 and T3 fractures of the spinous process and vertebral body respectively. Also right first through sixth rib and 11th rib fractures with right pulmonary contusion and left first rib fracture and sternal contusion. Patient reports some pain and stiffness in her shoulders that she was receiving lidocaine patches for at the prior hospital which was helpful to her otherwise no complaints today. ALLERGIES: See Below MEDICATIONS: Reviewed, see below. OBJECTIVE: VITAL SIGNS: Please see below. PHYSICAL EXAMINATION: GENERAL: Short elderly white female but for the leaning posture and kyphosis of the thorax who is alert and well oriented and in mild musculoskeletal distress. HEENT: Scalp hematoma is going through some resolution that patient now showing some ecchymoses around the eyes. CARDIOVASCULAR: Regular rate and rhythm with normal S1 and S2. 2/4 bilateral radial pulses. LUNGS: All hankins clear to auscultation. ABDOMEN: Benign with normal bowel sounds in all quadrants. NEUROLOGICAL: Patient is oriented 3 in general with a little difficulty with some elements of time and situation. Speech is clear coherent and appropriate. Affect shows a slightly mild flattening but in general patient is pleasant cooperative in working hard in therapies. Patient tends to lean forward onto her rolling walker. SKIN: Some reduction in the scalp hematoma in size but spreading from it more ecchymosis including around the eyes that is more purplish-brown in color LABORATORY DATA: Reviewed. Please see below. MICROBIOLOGY: Please see below. IMAGING: No new imaging. DVT prophylaxis ordered?: Aspirin, Lovenox and VENKAT hose. ASSESSMENT AND PLAN: 1. Rehabilitation of subdural hematoma: Patient cognitively seems to be doing well and has good attention and alertness and appears to be learning what is being taught in therapy. 2. Rehabilitation multiple trauma: I will go ahead and order some lightheaded during patch usage to help with neck and shoulder pain. 3. Moderate anemia: Patient remained stable at 8.3 and 25.2 for her H&H we will need to continue watching this especially in light of Lovenox. 4. Mild hyponatremia: Of note patient sodium was 133 today and this will need to be rechecked in the future. TIME SPENT: Chart Review, examination and documentation requires greater than 25 minutes. Allergies Coded Allergies: Aspirin (Verified Allergy, Severe, ASTHMA ATTACK, 07/30/12) Codeine (Verified Allergy, Severe, ASTHMA ATTACK, 07/30/12) Penicillins (Verified Allergy, Severe, SOB, 07/30/12) Penicillins Cross Reactors (Verified Allergy, Severe, SOB, 07/30/12) Sulfa Drugs (Verified Allergy, Mild, WEAK, 07/30/12) Sulfa Drugs Cross Reactors (Verified Allergy, Mild, WEAK, 07/30/12) Aminoglycosides (Unverified Allergy, Unknown, 07/30/12) Bacitracin (Unverified Allergy, Unknown, 07/30/12) Neomycin (Unverified Allergy, Unknown, 07/30/12) Polymyxin B (Unverified Allergy, Unknown, 07/30/12) Procaine (Verified Allergy, Unknown, 07/30/12) Vital Signs Vital Signs Date Time Temp Pulse Resp B/P (MAP) Pulse Ox O2 Delivery O2 Flow Rate FiO2 09/23/16 12:00 20 09/23/16 09:02 79 150/61 09/23/16 09:00 Room Air 09/23/16 06:00 98.9 95 Laboratory Data CBC/BMP Laboratory Tests 09/23/16 05:50 Red Blood Count 2.69 L, Mean Corpuscular Volume 93.8, Mean Corpuscular Hemoglobin 30.7, Mean Corpuscular Hemoglobin Concent 32.7, Red Cell Distribution Width 14.0, Calcium Level 9.1 Labs 24H Laboratory Tests 2 09/23/16 05:50: Anion Gap 7L, Glomerular Filtration Rate > 60.0, Blood Urea Nitrogen 18, Creatinine 0.58, Sodium Level 133L, Potassium Level 4.4, Chloride Level 97L, Carbon Dioxide Level 29, Calcium Level 9.1 Current Medications Current Medications Current Medications Acetaminophen (Tylenol Tab) 650 mg Q4HP PRN PO MILD PAIN (PS 1-4) Last administered on 09/21/16 17:40; Start 09/18/16 at 12:30; Stop 10/18/16 at 12:29 Albuterol Sulfate (Proventil, Ventolin Hfa) 2 puff BID INH Last administered on 09/23/16 07:13; Start 09/18/16 at 21:00; Stop 10/18/16 at 20:59 Albuterol Sulfate (Proventil, Ventolin Hfa) 2 puff Q6HP PRN INH SHORTNESS OF BREATH Last administered on 09/20/16 12:20; Start 09/18/16 at 12:30; Stop 10/18 at 12:29 Aspirin (Ecotrin) 81 mg DAILY PO Last administered on 09/23/16 09:01; Start at 09:00; Stop 10/19/16 at 08:59 Bisacodyl (Dulcolax Suppository) 10 mg DAILYPRN PRN [place] CONSTIPATION; Start at 11:30; Stop 10/20/16 at 11:29 Calcium/Vitamin D (Oscal D) 500 mg DAILY PO Last administered on 09/23/16 09: 02; Start 09/19/16 at 09:00; Stop 10/19/16 at 08:59 Enoxaparin Sodium (Lovenox) 30 mg BID SC Last administered on 09/23/16 09:01; Start 09/18/16 at 21:00; Stop 09/27/16 at 20:59 Fish Oil ([place]-3 (1050mg)) 1 ea DAILY PO Last administered on 09/23/16 09:01 ; Start 09/19/16 at 09:00; Stop 10/19/16 at 08:59 Furosemide (Lasix) 20 mg DAILY PO Last administered on 09/23/16 09:01; Start 09/19/16 at 09:00; Stop 10/19/16 at 08:59 Home Med (Med Rec Complete!) ASDIRECTED XX ; Start 09/18/16 at 13:30; Stop at 13:30; Status DC Loratadine (Claritin) 10 mg DAILY PO Last administered on 09/23/16 09:02; Start 09/19/16 at 09:00; Stop 10/19/16 at 08:59 Magnesium Hydroxide (Milk Of Magnesia) 30 ml DAILYPRN PRN PO CONSTIPATION; Start 09/20/16 at 11:30; Stop 10/20/16 at 11:29 Metoprolol Succinate (TopROL XL) 12.5 mg BID PO Last administered on 09/23/16 09:02; Start 09/18/16 at 21:00; Stop 10/18/16 at 20:59 Multivitamins (Theragram-M) 1 tab DAILY PO Last administered on 09/23/16 09:01 ; Start 09/19/16 at 09:00; Stop 10/19/16 at 08:59 Omeprazole (PriLOSEC) 20 mg DAILY PO Last administered on 09/23/16 09:01; Start 09/19/16 at 09:00; Stop 10/19/16 at 08:59 Oxycodone HCl (Roxicodone, Oxyir) 5 mg Q6HP PRN PO PAIN SCALE 6-10 Last administered on 09/23/16 11:27; Start 09/18/16 at 12:30; Stop 09/30/16 at 12:00 Polyethylene Glycol (Miralax) 1 pkt DAILY PO Last administered on 09/21/16 09: 05; Start 09/19/16 at 09:00; Stop 09/22/16 at 23:55; Status DC Potassium Chloride (Micro-K Extencaps) 20 meq DAILY PO Last administered on 09:02; Start 09/19/16 at 09:00; Stop 10/19/16 at 08:59 Prednisolone Acetate (Predforte 1% Ophth Susp) 1 drop QID OU Last administered on 09/23/16 12:47; Start 09/18/16 at 17:00; Stop 10/02/16 at 16:59 Salmeterol Xinafoate/ Fluticasone (Advair Hfa 115/ 21) 2 puff BID INH Last administered on 09/23/16 07:13; Start 09/18/16 at 21:00; Stop 10/18/16 at 20:59 Senna (Senokot) 1 tab BID PO Last administered on 09/23/16 09:01; Start at 21:00; Stop 10/18/16 at 20:59 Sodium Biphosphate/ Sodium Phosphate (Fleet Enema) 1 ENEMA DAILYPRN PRN [place] CONSTIPATION; Start 09/20/16 at 11:30; Stop 10/20/16 at 11:29 Vitamin B Complex/ Vitamin C (Therapeutic B Complex w/C) 1 cap DAILY PO Last administered on 09/23/16 09:02; Start 09/19/16 at 09:00; Stop 10/19/16 at 08:59 Vitamin D (Vitamin D) 2,000 units DAILY PO Last administered on 09/23/16 09:01 ; Start 09/19/16 at 09:00; Stop 10/19/16 at 08:59 VALERY YAO MD September 23, 2016 13:00
[2016-09-23] MEDS: LIDOCAINE 5% (LIDODERM) PATCH TD SCH (13:21)
[2016-09-23 14:00] VITALS: BP 116/58
[2016-09-23 21:30] VITALS: BP 124/58
[2016-09-23] MEDS: **NOTE PATIENT COMMENT** MISC XX SCH (21:49)
[2016-09-24 06:00] VITALS: BP 122/65
[2016-09-24 07:02] LABS: MEAN CORPUSCULAR HEMOGLOBIN 30.8 pg (27.0-33.0); MEAN CORPUSCULAR HGB CONC 32.6 g/dl (32.0-36.5); MEAN CORPUSCULAR VOLUME 94.5 fl (80.0-96.0); RED CELL DISTRIBUTION WIDTH 14.1 % (11.5-14.5); WHITE BLOOD COUNT 10.7 K/mm3 (4.0-10.0)
[2016-09-24 07:30] LABS: ANION GAP 7 MEQ/L (8-16); BLOOD UREA NITROGEN 18 MG/DL (7-18); CALCIUM LEVEL 9.3 MG/DL (8.8-10.2); CARBON DIOXIDE LEVEL 30 MEQ/L (21-32); CHLORIDE LEVEL 97 MEQ/L (98-107); CREATININE FOR GFR 0.58 MG/DL (0.55-1.02); GLOMERULAR FILTRATION RATE > 60.0 (>32); GLUCOSE, FASTING 88 MG/DL (83-110); POTASSIUM SERUM 4.7 MEQ/L (3.5-5.1); SODIUM LEVEL 134 MEQ/L (136-145)
[2016-09-24] MEDS: ADVAIR HFA 115/21MCG INHALER INH SCH ×2 (08:24→19:09)
[2016-09-24] MEDS: ALBUTEROL 90 MCG/ACT 8GM HFA INHALER INH SCH ×2 (08:25→22:09)
[2016-09-24] MEDS: ENOXAPARIN 30 MG/0.3 ML SYR (J1650) SC SCH ×2 (08:52→22:09)
[2016-09-24] MEDS: prednisoLONE ACET 1% OPHTH SUSP 5ML OU SCH ×4 (08:54→22:07)
[2016-09-24] MEDS: LIDOCAINE 5% (LIDODERM) PATCH TD SCH (08:55)
[2016-09-24] MEDS: MULTIVITAMINS/MINERALS THERAP 1 TAB PO SCH (08:59)
[2016-09-24] MEDS: OMEGA-3 1050MG CAPSULE PO SCH (08:59)
[2016-09-24] MEDS: VITAMIN D 1,000 INTERNATIONAL UNITS TABLET PO SCH (08:59)
[2016-09-24] MEDS: OMEPRAZOLE 20 MG CAP PO SCH (09:00)
[2016-09-24] MEDS: SENNA 8.6 MG TAB (SENOKOT) PO SCH ×3 (09:00→22:08)
[2016-09-24] MEDS: METOPROLOL SUCC *XL* 12.5MG PER 1/2 TAB (TopROL *XL*) PO SCH ×2 (09:00→22:08)
[2016-09-24] MEDS: FUROSEMIDE 20 MG TAB PO SCH (09:00)
[2016-09-24] MEDS: CALCIUM/VITAMIN D 500 MG TAB PO SCH (09:00)
[2016-09-24] MEDS: POTASSIUM CHLORIDE 10 MEQ SR TABLET PO SCH (09:01)
[2016-09-24] MEDS: ASPIRIN 81 MG ENTERIC TAB PO SCH (09:02)
[2016-09-24] MEDS: VITAMIN B COMPLEX/VIT C CAP PO SCH (09:06)
[2016-09-24] MEDS: LORATADINE 10 MG TAB PO SCH (09:07)
--- NOTE | 2016-09-24 11:54 | IPNPDOC ---
Subjective Date Seen The patient was seen on 09/24/16. Subjective Chief Complaint/HPI The patient is a 81-year-old female admitted with a reason for visit of TBI. Events since last encounter Patient is currently participating with physical therapy. Ambulating in the hallway. She states she gets tired after doing activity, denies chest pain, shortness of breath, abdominal pain. No urinary complaints. Denies diarrhea or constipation. Eating and drinking well. Objective Physical Examination General Exam: Positive: Alert, Cooperative, No Acute Distress ENT Exam: Positive: Atraumatic Chest Exam: Positive: Clear to auscultation, Other (rested, speaking in completed sentences, no accessory muscle use) Heart Exam: Positive: Rate Normal, Regular Rhythm Neuro Exam: Positive: Other (ambulating with assistance) Assessment /Plan Problems (1) Hyponatremia Status: Acute Problem Text: No adrenal insufficiency- based on cosyntropin stim test sick euthyroid Less likely cerebral salt wasting on diuretic Possible SIADH or similar related to head trauma- will avoid fluid restriction currently due to concern about recent head trauma/vasospasm Follow labs, and i/os labs improved today- monitor. (2) PAF (paroxysmal atrial fibrillation) Status: Chronic Problem Specific Plan: Monitor Clinically Problem Text: PAF noted in [place] regular on exam, rates in 70s-80s asa 81mg Metoprolol 12.5 BID with hold parameters. (3) Closed TBI (traumatic brain injury) Status: Acute (4) Ribs, multiple fractures Status: Acute Problem Text: pain reasonably controlled (5) Fracture, thoracic vertebra, compression Status: Acute (6) Fracture of spinous process of thoracic vertebra Status: Acute (7) Right pulmonary contusion Status: Acute Problem Text: history of asthma, has cough, order incentive spirometry (8) SDH (subdural hematoma) Status: Acute (9) HTN (hypertension) Status: Chronic Problem Text: * Lasix * Metoprolol with hold parameters. * monitor. (10) Constipation Plan/VTE VTE Prophylaxis Ordered?: Yes VS, I&O, 24H, Fishbone Vital Signs/I&O Vital Signs Date Time Temp Pulse Resp B/P (MAP) Pulse Ox O2 Delivery O2 Flow Rate FiO2 09/24/16 09:27 Room Air 09/24/16 09:00 82 90/50 09/24/16 06:00 97.6 18 99 I&O- Last 24 Hours up to 6 AM 09/24/16 05:59 Intake Total 1020 ml Balance 1020 ml Laboratory Data 24H LABS Laboratory Tests 2 09/24/16 06:36: Anion Gap 7L, Glomerular Filtration Rate > 60.0, Blood Urea Nitrogen 18, Creatinine 0.58, Sodium Level 134L, Potassium Level 4.7, Chloride Level 97L, Carbon Dioxide Level 30, Calcium Level 9.3 CBC/BMP Laboratory Tests 09/24/16 06:36 Red Blood Count 2.84 L, Mean Corpuscular Volume 94.5, Mean Corpuscular Hemoglobin 30.8, Mean Corpuscular Hemoglobin Concent 32.6, Red Cell Distribution Width 14.1, Calcium Level 9.3 Yulia Aguillon September 24, 2016 11:54
[2016-09-24] MEDS: oxyCODONE 5MG TAB PO PRN ×2 (12:19→22:31)
--- NOTE | 2016-09-24 13:29 | IPNPDOC ---
[employer] Progress Note DATE OF SERVICE: 09/24/16 DATE OF ADMISSION: September 18, 2016 at 11:16 INPATIENT REHABILITATION ADMISSION DAY: #6 SUBJECTIVE: Patient is a 81-year-old white female with will try including subdural hematoma, T1 and T3 fractures of the spinous process and vertebral body respectively. Also right first through sixth rib and 11th rib fractures with right pulmonary contusion and left first rib fracture and sternal contusion. Patient reports some pain and stiffness in her shoulders that she was receiving lidocaine patches for at the prior hospital which was helpful to her otherwise no complaints today. ALLERGIES: See Below MEDICATIONS: Reviewed, see below. OBJECTIVE: VITAL SIGNS: Please see below. PHYSICAL EXAMINATION: GENERAL: Short elderly white female but for the leaning posture and kyphosis of the thorax who is alert and well oriented and in mild musculoskeletal distress. HEENT: Scalp hematoma is going through some resolution. The patient is showing some ecchymoses around her eyes. CARDIOVASCULAR: Regular rate and rhythm with normal S1 and S2. 2/4 bilateral radial pulses. LUNGS: All hankins clear to auscultation. ABDOMEN: Benign with normal bowel sounds in all quadrants. NEUROLOGICAL: Patient is oriented 3 in general with a little difficulty with some elements of time and situation. Speech is clear coherent and appropriate. Affect shows a slightly mild flattening but in general patient is pleasant cooperative in working hard in therapies. Patient tends to lean forward onto her rolling walker. SKIN: Some further reduction in the scalp hematoma in size, but it continues to be spreading out with more ecchymosis around the eyes, that is more purplish- brown in color. LABORATORY DATA: Reviewed. Please see below. MICROBIOLOGY: Please see below. IMAGING: No new imaging. DVT prophylaxis ordered?: Aspirin, Lovenox and VENKAT hose. ASSESSMENT AND PLAN: 1. Rehabilitation of subdural hematoma: Patient cognitively seems to be doing well and has good attention and alertness and appears to be learning what is being taught in therapy. Her endurance also is increasing. 2. Rehabilitation multiple trauma: I will go ahead and order some lidoderm patch usage to help her with neck and shoulder pain. 3. Moderate anemia: Patient improved at 8.8 and 26.8% for her H&H from yesterday 's level of 8.3 & 25.2%. We will need to continue watching this especially in light of ongoing Lovenox treatment. 4. Mild hyponatremia: Of note patient sodium was 134 today up from 133 yesterday. TIME SPENT: Chart Review, examination and documentation minutes. Allergies Coded Allergies: Aspirin (Verified Allergy, Severe, ASTHMA ATTACK, 07/30/12) Codeine (Verified Allergy, Severe, ASTHMA ATTACK, 07/30/12) Penicillins (Verified Allergy, Severe, SOB, 07/30/12) Penicillins Cross Reactors (Verified Allergy, Severe, SOB, 07/30/12) Sulfa Drugs (Verified Allergy, Mild, WEAK, 07/30/12) Sulfa Drugs Cross Reactors (Verified Allergy, Mild, WEAK, 07/30/12) Aminoglycosides (Unverified Allergy, Unknown, 07/30/12) Bacitracin (Unverified Allergy, Unknown, 07/30/12) Neomycin (Unverified Allergy, Unknown, 07/30/12) Polymyxin B (Unverified Allergy, Unknown, 07/30/12) Procaine (Verified Allergy, Unknown, 07/30/12) Vital Signs Vital Signs Date Time Temp Pulse Resp B/P (MAP) Pulse Ox O2 Delivery O2 Flow Rate FiO2 09/24/16 12:19 20 09/24/16 09:27 Room Air 09/24/16 09:00 82 90/50 09/24/16 06:00 97.6 99 Laboratory Data CBC/BMP Laboratory Tests 09/24/16 06:36 Red Blood Count 2.84 L, Mean Corpuscular Volume 94.5, Mean Corpuscular Hemoglobin 30.8, Mean Corpuscular Hemoglobin Concent 32.6, Red Cell Distribution Width 14.1, Calcium Level 9.3 Labs 24H Laboratory Tests 2 09/24/16 06:36: Anion Gap 7L, Glomerular Filtration Rate > 60.0, Blood Urea Nitrogen 18, Creatinine 0.58, Sodium Level 134L, Potassium Level 4.7, Chloride Level 97L, Carbon Dioxide Level 30, Calcium Level 9.3 Current Medications Current Medications Current Medications Acetaminophen (Tylenol Tab) 650 mg Q4HP PRN PO MILD PAIN (PS 1-4) Last administered on 09/21/16 17:40; Start 09/18/16 at 12:30; Stop 10/18/16 at 12:29 Albuterol Sulfate (Proventil, Ventolin Hfa) 2 puff BID INH Last administered on 09/24/16 08:25; Start 09/18/16 at 21:00; Stop 10/18/16 at 20:59 Albuterol Sulfate (Proventil, Ventolin Hfa) 2 puff Q6HP PRN INH SHORTNESS OF BREATH Last administered on 09/20/16 12:20; Start 09/18/16 at 12:30; Stop 10/18 at 12:29 Aspirin (Ecotrin) 81 mg DAILY PO Last administered on 09/24/16 09:02; Start at 09:00; Stop 10/19/16 at 08:59 Bisacodyl (Dulcolax Suppository) 10 mg DAILYPRN PRN [place] CONSTIPATION; Start at 11:30; Stop 10/20/16 at 11:29 Calcium/Vitamin D (Oscal D) 500 mg DAILY PO Last administered on 09/24/16 09: 00; Start 09/19/16 at 09:00; Stop 10/19/16 at 08:59 Enoxaparin Sodium (Lovenox) 30 mg BID SC Last administered on 09/24/16 08:52; Start 09/18/16 at 21:00; Stop 09/27/16 at 20:59 Fish Oil ([place]-3 (1050mg)) 1 ea DAILY PO Last administered on 09/24/16 08:59 ; Start 09/19/16 at 09:00; Stop 10/19/16 at 08:59 Furosemide (Lasix) 20 mg DAILY PO Last administered on 09/23/16 09:01; Start 09/19/16 at 09:00; Stop 10/19/16 at 08:59 Home Med (Med Rec Complete!) ASDIRECTED XX ; Start 09/18/16 at 13:30; Stop at 13:30; Status DC Lidocaine (Lidoderm Patch) 1 patch DAILY TD Last administered on 09/24/16 08: 55; Start 09/23/16 at 09:00; Stop 10/23/16 at 08:59 Loratadine (Claritin) 10 mg DAILY PO Last administered on 09/24/16 09:07; Start 09/19/16 at 09:00; Stop 10/19/16 at 08:59 Magnesium Hydroxide (Milk Of Magnesia) 30 ml DAILYPRN PRN PO CONSTIPATION; Start 09/20/16 at 11:30; Stop 10/20/16 at 11:29 Metoprolol Succinate (TopROL XL) 12.5 mg BID PO Last administered on 09/23/16 21:49; Start 09/18/16 at 21:00; Stop 10/18/16 at 20:59 Multivitamins (Theragram-M) 1 tab DAILY PO Last administered on 09/24/16 08:59 ; Start 09/19/16 at 09:00; Stop 10/19/16 at 08:59 Non-Formulary Medication ( See Comment Field Below ) REMOVE LIDODERM PATCH DAILY@21 XX Last administered on 09/23/16 21:49; Start 09/23/16 at 21:00; Stop 10/23/16 at 20:59 Omeprazole (PriLOSEC) 20 mg DAILY PO Last administered on 09/24/16 09:00; Start 09/19/16 at 09:00; Stop 10/19/16 at 08:59 Oxycodone HCl (Roxicodone, Oxyir) 5 mg Q6HP PRN PO PAIN SCALE 6-10 Last administered on 09/24/16 12:19; Start 09/18/16 at 12:30; Stop 09/30/16 at 12:00 Polyethylene Glycol (Miralax) 1 pkt DAILY PO Last administered on 09/21/16 09: 05; Start 09/19/16 at 09:00; Stop 09/22/16 at 23:55; Status DC Potassium Chloride (Micro-K Extencaps) 20 meq DAILY PO Last administered on 09:01; Start 09/19/16 at 09:00; Stop 10/19/16 at 08:59 Prednisolone Acetate (Predforte 1% Ophth Susp) 1 drop QID OU Last administered on 09/24/16 12:19; Start 09/18/16 at 17:00; Stop 10/02/16 at 16:59 Salmeterol Xinafoate/ Fluticasone (Advair Hfa 115/ 21) 2 puff BID INH Last administered on 09/24/16 08:24; Start 09/18/16 at 21:00; Stop 10/18/16 at 20:59 Senna (Senokot) 1 tab BID PO Last administered on 09/24/16 09:22; Start at 21:00; Stop 10/18/16 at 20:59 Sodium Biphosphate/ Sodium Phosphate (Fleet Enema) 1 ENEMA DAILYPRN PRN [place] CONSTIPATION; Start 09/20/16 at 11:30; Stop 10/20/16 at 11:29 Vitamin B Complex/ Vitamin C (Therapeutic B Complex w/C) 1 cap DAILY PO Last administered on 09/24/16 09:06; Start 09/19/16 at 09:00; Stop 10/19/16 at 08:59 Vitamin D (Vitamin D) 2,000 units DAILY PO Last administered on 09/24/16 08:59 ; Start 09/19/16 at 09:00; Stop 10/19/16 at 08:59 VALERY YAO MD September 24, 2016 13:29
[2016-09-24 14:15] VITALS: BP 102/56
[2016-09-24 20:00] VITALS: BP 135/63
[2016-09-24] MEDS: **NOTE PATIENT COMMENT** MISC XX SCH (22:09)
[2016-09-25] MEDS: ACETAMINOPHEN TAB 650MG DOSE (2X325MG) PO PRN ×3 (01:25→21:32)
[2016-09-25 06:00] VITALS: BP 144/67
[2016-09-25 06:55] LABS: MEAN CORPUSCULAR HEMOGLOBIN 31.3 pg (27.0-33.0); MEAN CORPUSCULAR HGB CONC 32.8 g/dl (32.0-36.5); MEAN CORPUSCULAR VOLUME 95.2 fl (80.0-96.0); RED CELL DISTRIBUTION WIDTH 13.9 % (11.5-14.5); WHITE BLOOD COUNT 12.6 K/mm3 (4.0-10.0)
[2016-09-25 07:07] LABS: ANION GAP 4 MEQ/L (8-16); BLOOD UREA NITROGEN 16 MG/DL (7-18); CALCIUM LEVEL 8.7 MG/DL (8.8-10.2); CARBON DIOXIDE LEVEL 29 MEQ/L (21-32); CHLORIDE LEVEL 97 MEQ/L (98-107); CREATININE FOR GFR 0.54 MG/DL (0.55-1.02); GLOMERULAR FILTRATION RATE > 60.0 (>32); GLUCOSE, FASTING 91 MG/DL (83-110); POTASSIUM SERUM 4.5 MEQ/L (3.5-5.1); SODIUM LEVEL 130 MEQ/L (136-145)
[2016-09-25] MEDS: ADVAIR HFA 115/21MCG INHALER INH SCH ×2 (07:45→19:44)
[2016-09-25] MEDS: ALBUTEROL 90 MCG/ACT 8GM HFA INHALER INH SCH ×2 (07:46→19:44)
[2016-09-25] MEDS: LIDOCAINE 5% (LIDODERM) PATCH TD SCH (09:17)
[2016-09-25] MEDS: ENOXAPARIN 30 MG/0.3 ML SYR (J1650) SC SCH ×2 (09:20→21:33)
[2016-09-25] MEDS: prednisoLONE ACET 1% OPHTH SUSP 5ML OU SCH ×4 (09:22→21:32)
[2016-09-25] MEDS: MULTIVITAMINS/MINERALS THERAP 1 TAB PO SCH (09:24)
[2016-09-25] MEDS: METOPROLOL SUCC *XL* 12.5MG PER 1/2 TAB (TopROL *XL*) PO SCH ×2 (09:25→21:31)
[2016-09-25] MEDS: VITAMIN B COMPLEX/VIT C CAP PO SCH (09:26)
[2016-09-25] MEDS: VITAMIN D 1,000 INTERNATIONAL UNITS TABLET PO SCH (09:27)
[2016-09-25] MEDS: OMEGA-3 1050MG CAPSULE PO SCH (09:28)
[2016-09-25] MEDS: CALCIUM/VITAMIN D 500 MG TAB PO SCH (09:29)
[2016-09-25] MEDS: SENNA 8.6 MG TAB (SENOKOT) PO SCH ×2 (09:29→21:31)
[2016-09-25] MEDS: ASPIRIN 81 MG ENTERIC TAB PO SCH (09:30)
[2016-09-25] MEDS: FUROSEMIDE 20 MG TAB PO SCH (09:31)
[2016-09-25] MEDS: POTASSIUM CHLORIDE 10 MEQ SR TABLET PO SCH (09:32)
[2016-09-25] MEDS: OMEPRAZOLE 20 MG CAP PO SCH (09:33)
[2016-09-25] MEDS: LORATADINE 10 MG TAB PO SCH (09:33)
[2016-09-25] MEDS: oxyCODONE 5MG TAB PO PRN (09:36)
--- NOTE | 2016-09-25 11:53 | IPNPDOC ---
Induction Heat Treater Progress Note DATE OF SERVICE: 09/25/16 DATE OF ADMISSION: September 18, 2016 at 11:16 INPATIENT REHABILITATION ADMISSION DAY: #7 SUBJECTIVE: Patient is a 81-year-old white female with will try including subdural hematoma, T1 and T3 fractures of the spinous process and vertebral body respectively. Also right first through sixth rib and 11th rib fractures with right pulmonary contusion and left first rib fracture and sternal contusion. Patient reports some pain especially after shoulder activity. Her Lidoderm patches have not yet been placed today, otherwise no complaints today, though she is very focused on and desiring to go to her grandson's wedding on 02/10. ALLERGIES: See Below MEDICATIONS: Reviewed, see below. OBJECTIVE: VITAL SIGNS: Please see below. PHYSICAL EXAMINATION: GENERAL: Short elderly white female but for the leaning posture and kyphosis of the thorax who is alert and well oriented and in mild musculoskeletal distress. HEENT: Scalp hematoma is going through some resolution, now smaller. The patient is showing clearing of the ecchymoses around her eyes. CARDIOVASCULAR: Regular rate and rhythm with normal S1 and S2. 2/4 bilateral radial pulses. LUNGS: All hankins clear to auscultation. ABDOMEN: Benign with normal bowel sounds in all quadrants. NEUROLOGICAL: Patient is oriented 3 in general with a little difficulty with some elements of time and situation. Speech is clear coherent and appropriate. Affect shows a slightly mild flattening but in general patient is pleasant cooperative in working hard in therapies. Patient tends to lean forward onto her rolling walker. SKIN: Some further reduction in the scalp hematoma in size. LABORATORY DATA: Reviewed. Please see below. MICROBIOLOGY: Please see below. IMAGING: No new imaging. DVT prophylaxis ordered?: Aspirin, Lovenox and VENKAT hose. ASSESSMENT AND PLAN: 1. Rehabilitation of subdural hematoma: Patient cognitively seems to be doing well and has good attention and alertness and appears to be learning what is being taught in therapy. Her endurance also is increasing. 2. Rehabilitation multiple trauma: I will go ahead and order some lidoderm patch usage to help her with neck and shoulder pain. 3. Moderate anemia: Patient's H&H at 8.3 and 25.6%. We will need to continue watching this especially in light of ongoing Lovenox treatment. 4. Mild hyponatremia: Of note patient sodium was 130 today down from 134 yesterday and 133 the day before that. TIME SPENT: Chart Review, examination and documentation required greater than 35 minutes. Allergies Coded Allergies: Aspirin (Verified Allergy, Severe, ASTHMA ATTACK, 07/30/12) Codeine (Verified Allergy, Severe, ASTHMA ATTACK, 07/30/12) Penicillins (Verified Allergy, Severe, SOB, 07/30/12) Penicillins Cross Reactors (Verified Allergy, Severe, SOB, 07/30/12) Sulfa Drugs (Verified Allergy, Mild, WEAK, 07/30/12) Sulfa Drugs Cross Reactors (Verified Allergy, Mild, WEAK, 07/30/12) Aminoglycosides (Unverified Allergy, Unknown, 07/30/12) Bacitracin (Unverified Allergy, Unknown, 07/30/12) Neomycin (Unverified Allergy, Unknown, 07/30/12) Polymyxin B (Unverified Allergy, Unknown, 07/30/12) Procaine (Verified Allergy, Unknown, 07/30/12) Vital Signs Vital Signs Date Time Temp Pulse Resp B/P (MAP) Pulse Ox O2 Delivery O2 Flow Rate FiO2 09/25/16 10:06 18 09/25/16 09:25 77 110/60 09/25/16 09:00 Room Air 09/25/16 06:00 99.0 100 Laboratory Data CBC/BMP Laboratory Tests 09/25/16 06:17 Red Blood Count 2.66 L, Mean Corpuscular Volume 95.2, Mean Corpuscular Hemoglobin 31.3, Mean Corpuscular Hemoglobin Concent 32.8, Red Cell Distribution Width 13.9, Calcium Level 8.7 L Labs 24H Laboratory Tests 2 09/25/16 06:17: Anion Gap 4L, Glomerular Filtration Rate > 60.0, Blood Urea Nitrogen 16, Creatinine 0.54L, Sodium Level 130L, Potassium Level 4.5, Chloride Level 97L, Carbon Dioxide Level 29, Calcium Level 8.7L Current Medications Current Medications Current Medications Acetaminophen (Tylenol Tab) 650 mg Q4HP PRN PO MILD PAIN (PS 1-4) Last administered on 09/25/16 01:25; Start 09/18/16 at 12:30; Stop 10/18/16 at 12:29 Albuterol Sulfate (Proventil, Ventolin Hfa) 2 puff BID INH Last administered on 09/25/16 07:46; Start 09/18/16 at 21:00; Stop 10/18/16 at 20:59 Albuterol Sulfate (Proventil, Ventolin Hfa) 2 puff Q6HP PRN INH SHORTNESS OF BREATH Last administered on 09/20/16 12:20; Start 09/18/16 at 12:30; Stop 10/18 at 12:29 Aspirin (Ecotrin) 81 mg DAILY PO Last administered on 09/25/16 09:30; Start at 09:00; Stop 10/19/16 at 08:59 Bisacodyl (Dulcolax Suppository) 10 mg DAILYPRN PRN [place] CONSTIPATION; Start at 11:30; Stop 10/20/16 at 11:29 Calcium/Vitamin D (Oscal D) 500 mg DAILY PO Last administered on 09/25/16 09:29 ; Start 09/19/16 at 09:00; Stop 10/19/16 at 08:59 Enoxaparin Sodium (Lovenox) 30 mg BID SC Last administered on 09/25/16 09:20; Start 09/18/16 at 21:00; Stop 10/02/16 at 12:00 Fish Oil ([place]-3 (1050mg)) 1 ea DAILY PO Last administered on 09/25/16 09:28; Start 09/19/16 at 09:00; Stop 10/19/16 at 08:59 Furosemide (Lasix) 20 mg DAILY PO Last administered on 09/25/16 09:31; Start at 09:00; Stop 10/02/16 at 12:00 Home Med (Med Rec Complete!) ASDIRECTED XX ; Start 09/18/16 at 13:30; Stop at 13:30; Status DC Lidocaine (Lidoderm Patch) 1 patch DAILY TD Last administered on 09/25/16 09:17 ; Start 09/23/16 at 09:00; Stop 10/23/16 at 08:59 Loratadine (Claritin) 10 mg DAILY PO Last administered on 09/25/16 09:33; Start 09/19/16 at 09:00; Stop 10/19/16 at 08:59 Magnesium Hydroxide (Milk Of Magnesia) 30 ml DAILYPRN PRN PO CONSTIPATION; Start 09/20/16 at 11:30; Stop 10/20/16 at 11:29 Metoprolol Succinate (TopROL XL) 12.5 mg BID PO Last administered on 09/25/16 09:25; Start 09/18/16 at 21:00; Stop 10/18/16 at 20:59 Multivitamins (Theragram-M) 1 tab DAILY PO Last administered on 09/25/16 09:24 ; Start 09/19/16 at 09:00; Stop 10/19/16 at 08:59 Non-Formulary Medication ( See Comment Field Below ) REMOVE LIDODERM PATCH DAILY@21 XX Last administered on 09/24/16 22:09; Start 09/23/16 at 21:00; Stop 10/23/16 at 20:59 Omeprazole (PriLOSEC) 20 mg DAILY PO Last administered on 09/25/16 09:33; Start 09/19/16 at 09:00; Stop 10/19/16 at 08:59 Oxycodone HCl (Roxicodone, Oxyir) 5 mg Q6HP PRN PO PAIN SCALE 6-10 Last administered on 09/25/16 09:36; Start 09/18/16 at 12:30; Stop 09/30/16 at 12:00 Polyethylene Glycol (Miralax) 1 pkt DAILY PO Last administered on 09/21/16 09: 05; Start 09/19/16 at 09:00; Stop 09/22/16 at 23:55; Status DC Potassium Chloride (Micro-K Extencaps) 20 meq DAILY PO Last administered on 09/25 09:32; Start 09/19/16 at 09:00; Stop 10/19/16 at 08:59 Prednisolone Acetate (Predforte 1% Ophth Susp) 1 drop QID OU Last administered on 09/25/16 09:22; Start 09/18/16 at 17:00; Stop 10/02/16 at 16:59 Salmeterol Xinafoate/ Fluticasone (Advair Hfa 115/ 21) 2 puff BID INH Last administered on 09/25/16 07:45; Start 09/18/16 at 21:00; Stop 10/18/16 at 20:59 Senna (Senokot) 1 tab BID PO Last administered on 09/25/16 09:29; Start at 21:00; Stop 10/18/16 at 20:59 Sodium Biphosphate/ Sodium Phosphate (Fleet Enema) 1 ENEMA DAILYPRN PRN [place] CONSTIPATION; Start 09/20/16 at 11:30; Stop 10/20/16 at 11:29 Vitamin B Complex/ Vitamin C (Therapeutic B Complex w/C) 1 cap DAILY PO Last administered on 09/25/16 09:26; Start 09/19/16 at 09:00; Stop 10/19/16 at 08:59 Vitamin D (Vitamin D) 2,000 units DAILY PO Last administered on 09/25/16 09:27 ; Start 09/19/16 at 09:00; Stop 10/19/16 at 08:59 VALERY YAO MD Sep 25, 2016 11:53
--- NOTE | 2016-09-25 12:12 | IPNPDOC ---
Subjective Date Seen The patient was seen on 09/25/16. Subjective Chief Complaint/HPI The patient is a 81-year-old female admitted with a reason for visit of TBI. Events since last encounter OOB to chair. ' States pain is controlled. ENT: Denies: Head Aches, Dysphagia Pulmonary: Denies: Dyspnea, Cough Cardiovascular: Denies: Chest Pain, Palpitations, Orthopnea, Paroxysmal Noc. Dyspnea, Lt Headedness Gastrointestinal: Denies: Nausea, Vomiting, Abdominal Pain, Diarrhea, Constipation Genitourinary: Denies: Dysuria, Frequency, Incontinence, Retention Objective Physical Examination General Exam: Positive: Alert, Cooperative, No Acute Distress ENT Exam: Positive: Atraumatic Chest Exam: Positive: Clear to auscultation, Other (rested, speaking in completed sentences, no accessory muscle use) Heart Exam: Positive: Rate Normal Skin Exam: Positive: Nl turgor and temperature Assessment /Plan Problems (1) Hyponatremia Status: Acute Problem Text: No adrenal insufficiency- based on cosyntropin stim test sick euthyroid Less likely cerebral salt wasting on diuretic Possible SIADH or similar related to head trauma- will avoid fluid restriction currently due to concern about recent head trauma/vasospasm Follow labs, and i/os labs ranging 130-134- monitor. (2) PAF (paroxysmal atrial fibrillation) Status: Chronic Problem Specific Plan: Monitor Clinically Problem Text: PAF noted in [place] rates in 70s-80s asa 81mg Metoprolol 12.5 BID with hold parameters. (3) Closed TBI (traumatic brain injury) Status: Acute (4) Ribs, multiple fractures Status: Acute Problem Text: pain reasonably controlled (5) Fracture, thoracic vertebra, compression Status: Acute (6) Fracture of spinous process of thoracic vertebra Status: Acute (7) Right pulmonary contusion Status: Acute Problem Text: history of asthma, has cough, order incentive spirometry (8) SDH (subdural hematoma) Status: Acute (9) HTN (hypertension) Status: Chronic Problem Text: * Lasix * Metoprolol with hold parameters. * monitor. (10) Constipation Plan/VTE VTE Prophylaxis Ordered?: Yes VS, I&O, 24H, Fishbone Vital Signs/I&O Vital Signs Date Time Temp Pulse Resp B/P (MAP) Pulse Ox O2 Delivery O2 Flow Rate FiO2 09/25/16 10:06 18 09/25/16 09:25 77 110/60 09/25/16 09:00 Room Air 09/25/16 06:00 99.0 100 I&O- Last 24 Hours up to 6 AM 09/25/16 06:00 Intake Total 560 ml Output Total 300 ml Balance 260 ml Laboratory Data 24H LABS Laboratory Tests 2 09/25/16 06:17: Anion Gap 4L, Glomerular Filtration Rate > 60.0, Blood Urea Nitrogen 16, Creatinine 0.54L, Sodium Level 130L, Potassium Level 4.5, Chloride Level 97L, Carbon Dioxide Level 29, Calcium Level 8.7L CBC/BMP Laboratory Tests 09/25/16 06:17 Red Blood Count 2.66 L, Mean Corpuscular Volume 95.2, Mean Corpuscular Hemoglobin 31.3, Mean Corpuscular Hemoglobin Concent 32.8, Red Cell Distribution Width 13.9, Calcium Level 8.7 L Yulia Aguillon Sep 25, 2016 12:12
[2016-09-25 15:24] VITALS: BP 110/56
[2016-09-25 20:00] VITALS: BP 117/70
[2016-09-25] MEDS: **NOTE PATIENT COMMENT** MISC XX SCH (21:22)
[2016-09-26 06:00] VITALS: BP 137/63
[2016-09-26 06:42] LABS: MEAN CORPUSCULAR HEMOGLOBIN 30.9 pg (27.0-33.0); MEAN CORPUSCULAR HGB CONC 32.7 g/dl (32.0-36.5); MEAN CORPUSCULAR VOLUME 94.4 fl (80.0-96.0); RED CELL DISTRIBUTION WIDTH 13.7 % (11.5-14.5); WHITE BLOOD COUNT 10.4 K/mm3 (4.0-10.0)
[2016-09-26 06:56] LABS: ANION GAP 7 MEQ/L (8-16); BLOOD UREA NITROGEN 16 MG/DL (7-18); CALCIUM LEVEL 8.6 MG/DL (8.8-10.2); CARBON DIOXIDE LEVEL 28 MEQ/L (21-32); CHLORIDE LEVEL 97 MEQ/L (98-107); CREATININE FOR GFR 0.54 MG/DL (0.55-1.02); GLOMERULAR FILTRATION RATE > 60.0 (>32); GLUCOSE, FASTING 91 MG/DL (83-110); POTASSIUM SERUM 4.6 MEQ/L (3.5-5.1); SODIUM LEVEL 132 MEQ/L (136-145)
[2016-09-26] MEDS: ADVAIR HFA 115/21MCG INHALER INH SCH ×2 (07:20→21:01)
[2016-09-26] MEDS: ALBUTEROL 90 MCG/ACT 8GM HFA INHALER INH SCH ×2 (07:21→21:00)
[2016-09-26] MEDS: LIDOCAINE 5% (LIDODERM) PATCH TD SCH (09:34)
[2016-09-26] MEDS: VITAMIN D 1,000 INTERNATIONAL UNITS TABLET PO SCH (09:35)
[2016-09-26] MEDS: ENOXAPARIN 30 MG/0.3 ML SYR (J1650) SC SCH ×2 (09:35→21:09)
[2016-09-26] MEDS: SENNA 8.6 MG TAB (SENOKOT) PO SCH ×2 (09:35→21:08)
[2016-09-26] MEDS: OMEGA-3 1050MG CAPSULE PO SCH (09:35)
[2016-09-26] MEDS: CALCIUM/VITAMIN D 500 MG TAB PO SCH (09:35)
[2016-09-26] MEDS: OMEPRAZOLE 20 MG CAP PO SCH (09:35)
[2016-09-26] MEDS: FUROSEMIDE 20 MG TAB PO SCH (09:36)
[2016-09-26] MEDS: MULTIVITAMINS/MINERALS THERAP 1 TAB PO SCH (09:36)
[2016-09-26] MEDS: VITAMIN B COMPLEX/VIT C CAP PO SCH (09:36)
[2016-09-26] MEDS: LORATADINE 10 MG TAB PO SCH (09:36)
[2016-09-26] MEDS: POTASSIUM CHLORIDE 10 MEQ SR TABLET PO SCH (09:36)
[2016-09-26] MEDS: ASPIRIN 81 MG ENTERIC TAB PO SCH (09:36)
[2016-09-26] MEDS: prednisoLONE ACET 1% OPHTH SUSP 5ML OU SCH ×4 (09:40→21:08)
[2016-09-26] MEDS: METOPROLOL SUCC *XL* 12.5MG PER 1/2 TAB (TopROL *XL*) PO SCH ×2 (09:40→20:33)
--- NOTE | 2016-09-26 11:14 | IPNPDOC ---
Assistant Golf Professional Progress Note DATE OF SERVICE: 09/26/16 DATE OF ADMISSION: September 18, 2016 at 11:16 INPATIENT REHABILITATION ADMISSION DAY: #8 SUBJECTIVE: Patient is a 81-year-old white female with TBI/multiple trauma. Patient with less complaints of pain in the shoulders and otherwise reports doing well. She notes that she has not seen the ecchymosis in the face due to the mirrors in the room being too high. She does complain about the room being too cold and the thermostat not working. Nursing has reported this to the building maintenance personnel. ALLERGIES: See Below MEDICATIONS: Reviewed, see below. OBJECTIVE: VITAL SIGNS: Please see below. PHYSICAL EXAMINATION: GENERAL: Short elderly white female with large hematoma/seroma on the top of the forehead. She does have diffuse ecchymosis breaking down showing all colors but very little purplish blue black areas at this time. HEENT: As noted above with a approximately 2.5 x 2 cm x 1.7 cm tall hematoma/ seroma at the hairline just left of center. CARDIOVASCULAR: Regular rate and rhythm with normal S1 and S2 and good bilateral radial pulses. LUNGS: All hankins clear to auscultation. ABDOMEN: Bowel sounds present in all quadrants. NEUROLOGICAL: Patient is alert and oriented to person, place, time and general situation. Speech is clear coherent and appropriate affect is pleasant and cooperative with patient and fairly good mood. Patient demonstrating good functional range of motion and strength except for limited testing on right upper extremity due to rib fractures. Balance is improving. SKIN: As noted above for the head with the scalp hematoma/seroma. LABORATORY DATA: Reviewed. Please see below. MICROBIOLOGY: Please see below. IMAGING: No new imaging. DVT prophylaxis ordered?: Patient continues on Lovenox with VENKAT rakanbryon. ASSESSMENT AND PLAN: 1. Rehabilitation TBI with subdural hematoma: Patient is doing well and cognition is not a significant problem at this time though patient has a little tendency towards impulsivity that may be premorbid. No significant paresis noted from the subdural hematoma. 2. Multiple fractures: Most of the pain is from muscle spasm supporting the first rib fractures and the T1 and T3 vertebral fractures. No signs of ankle movement or problems with these. Will continue with Lidoderm and other analgesics as prescribed. 3. Anemia: H&H is 8.6 and 26.4% remained stable of note patient continues to have decline in platelets now at 566, 000. Continue to watch CBCs especially in light of the subclavian vessels up against ribs and patient on Lovenox. 4. Hyponatremia: Sodium remains low at 132 with chloride at 97 otherwise electrolytes are doing well. Will recheck BMP on Thursday. TIME SPENT: Chart Review, examination and documentation required greater than 25 minutes. Allergies Coded Allergies: Aspirin (Verified Allergy, Severe, ASTHMA ATTACK, 07/30/12) Codeine (Verified Allergy, Severe, ASTHMA ATTACK, 07/30/12) Penicillins (Verified Allergy, Severe, SOB, 07/30/12) Penicillins Cross Reactors (Verified Allergy, Severe, SOB, 07/30/12) Sulfa Drugs (Verified Allergy, Mild, WEAK, 07/30/12) Sulfa Drugs Cross Reactors (Verified Allergy, Mild, WEAK, 07/30/12) Aminoglycosides (Unverified Allergy, Unknown, 07/30/12) Bacitracin (Unverified Allergy, Unknown, 07/30/12) Neomycin (Unverified Allergy, Unknown, 07/30/12) Polymyxin B (Unverified Allergy, Unknown, 07/30/12) Procaine (Verified Allergy, Unknown, 07/30/12) Vital Signs Vital Signs Date Time Temp Pulse Resp B/P (MAP) Pulse Ox O2 Delivery O2 Flow Rate FiO2 09/26/16 09:40 82 118/57 09/26/16 08:00 Room Air 09/26/16 06:00 98.3 18 96 Laboratory Data CBC/BMP Laboratory Tests 09/26/16 06:13 Red Blood Count 2.80 L, Mean Corpuscular Volume 94.4, Mean Corpuscular Hemoglobin 30.9, Mean Corpuscular Hemoglobin Concent 32.7, Red Cell Distribution Width 13.7, Calcium Level 8.6 L Labs 24H Laboratory Tests 2 09/26/16 06:13: Anion Gap 7L, Glomerular Filtration Rate > 60.0, Blood Urea Nitrogen 16, Creatinine 0.54L, Sodium Level 132L, Potassium Level 4.6, Chloride Level 97L, Carbon Dioxide Level 28, Calcium Level 8.6L Current Medications Current Medications Current Medications Acetaminophen (Tylenol Tab) 650 mg Q4HP PRN PO MILD PAIN (PS 1-4) Last administered on 09/25/16t 21:32; Start 09/18/16 at 12:30; Stop 10/18/16 at 12:29 Albuterol Sulfate (Proventil, Ventolin Hfa) 2 puff BID INH Last administered on 09/26/16 07:21; Start 09/18/16 at 21:00; Stop 10/18/16 at 20:59 Albuterol Sulfate (Proventil, Ventolin Hfa) 2 puff Q6HP PRN INH SHORTNESS OF BREATH Last administered on 09/20/16 12:20; Start 09/18/16 at 12:30; Stop 10/18 at 12:29 Aspirin (Ecotrin) 81 mg DAILY PO Last administered on 09/26/16 09:36; Start at 09:00; Stop 10/19/16 at 08:59 Bisacodyl (Dulcolax Suppository) 10 mg DAILYPRN PRN [place] CONSTIPATION; Start at 11:30; Stop 10/20/16 at 11:29 Calcium/Vitamin D (Oscal D) 500 mg DAILY PO Last administered on 09/26/16 09:35 ; Start 09/19/16 at 09:00; Stop 10/19/16 at 08:59 Enoxaparin Sodium (Lovenox) 30 mg BID SC Last administered on 09/26/16 09:35; Start 09/18/16 at 21:00; Stop 10/02/16 at 12:00 Fish Oil ([place]-3 (1050mg)) 1 ea DAILY PO Last administered on 09/26/16 09:35; Start 09/19/16 at 09:00; Stop 10/19/16 at 08:59 Furosemide (Lasix) 20 mg DAILY PO Last administered on 09/26/16 09:36; Start at 09:00; Stop 10/02/16 at 12:00 Home Med (Med Rec Complete!) ASDIRECTED XX ; Start 09/18/16 at 13:30; Stop at 13:30; Status DC Lidocaine (Lidoderm Patch) 1 patch DAILY TD Last administered on 09/26/16 09:34 ; Start 09/23/16 at 09:00; Stop 10/23/16 at 08:59 Loratadine (Claritin) 10 mg DAILY PO Last administered on 09/26/16 09:36; Start 09/19/16 at 09:00; Stop 10/19/16 at 08:59 Magnesium Hydroxide (Milk Of Magnesia) 30 ml DAILYPRN PRN [place] CONSTIPATION; Start 09/20/16 at 11:30; Stop 10/20/16 at 11:29 Metoprolol Succinate (TopROL XL) 12.5 mg BID PO Last administered on 09/26/16 09:40; Start 09/18/16 at 21:00; Stop 10/18/16 at 20:59 Multivitamins (Theragram-M) 1 tab DAILY PO Last administered on 09/26/16 09:36 ; Start 09/19/16 at 09:00; Stop 10/19/16 at 08:59 Non-Formulary Medication ( See Comment Field Below ) REMOVE LIDODERM PATCH DAILY@21 XX Last administered on 09/25/16 21:22; Start 09/23/16 at 21:00; Stop 10/23/16 at 20:59 Omeprazole (PriLOSEC) 20 mg DAILY PO Last administered on 09/26/16 09:35; Start 09/19/16 at 09:00; Stop 10/19/16 at 08:59 Oxycodone HCl (Roxicodone, Oxyir) 5 mg Q6HP PRN PO PAIN SCALE 6-10 Last administered on 09/25/16 09:36; Start 09/18/16 at 12:30; Stop 09/30/16 at 12:00 Polyethylene Glycol (Miralax) 1 pkt DAILY PO Last administered on 09/21/16 09: 05; Start 09/19/16 at 09:00; Stop 09/22/16 at 23:55; Status DC Potassium Chloride (Micro-K Extencaps) 20 meq DAILY PO Last administered on 09/26 09:36; Start 09/19/16 at 09:00; Stop 10/19/16 at 08:59 Prednisolone Acetate (Predforte 1% Ophth Susp) 1 drop QID OU Last administered on 09/26/16 09:40; Start 09/18/16 at 17:00; Stop 10/02/16 at 16:59 Salmeterol Xinafoate/ Fluticasone (Advair Hfa 115/ 21) 2 puff BID INH Last administered on 09/26/16 07:20; Start 09/18/16 at 21:00; Stop 10/18/16 at 20:59 Senna (Senokot) 1 tab BID PO Last administered on 09/26/16 09:35; Start at 21:00; Stop 10/18/16 at 20:59 Sodium Biphosphate/ Sodium Phosphate (Fleet Enema) 1 ENEMA DAILYPRN PRN [place] CONSTIPATION; Start 09/20/16 at 11:30; Stop 10/20/16 at 11:29 Vitamin B Complex/ Vitamin C (Therapeutic B Complex w/C) 1 cap DAILY PO Last administered on 09/26/16 09:36; Start 09/19/16 at 09:00; Stop 10/19/16 at 08:59 Vitamin D (Vitamin D) 2,000 units DAILY PO Last administered on 09/26/16 09:35 ; Start 09/19/16 at 09:00; Stop 10/19/16 at 08:59 VALERY YAO MD Sep 26, 2016 11:14
--- NOTE | 2016-09-26 11:56 | IPNPDOC ---
Subjective Date Seen The patient was seen on 09/26/16. Subjective Chief Complaint/HPI The patient is a 81-year-old female admitted with a reason for visit of TBI. Events since last encounter Pt resting. Completed therapy this AM. Pt with no new c/o. ENT: Denies: Head Aches, Dysphagia Pulmonary: Denies: Dyspnea, Cough Cardiovascular: Denies: Chest Pain, Palpitations, Orthopnea, Paroxysmal Noc. Dyspnea, Lt Headedness Gastrointestinal: Denies: Nausea, Vomiting, Abdominal Pain, Diarrhea, Constipation Objective Physical Examination General Exam: Positive: Alert, Cooperative, No Acute Distress ENT Exam: Positive: Atraumatic Chest Exam: Positive: Clear to auscultation, Other (rested, speaking in completed sentences, no accessory muscle use) Heart Exam: Positive: Rate Normal Skin Exam: Positive: Nl turgor and temperature Assessment /Plan Problems (1) Hyponatremia Status: Acute Problem Text: No adrenal insufficiency- based on cosyntropin stim test sick euthyroid Less likely cerebral salt wasting on diuretic Possible SIADH or similar related to head trauma- will avoid fluid restriction currently due to concern about recent head trauma/vasospasm Follow labs, and i/os labs ranging 130-134- monitor. (2) PAF (paroxysmal atrial fibrillation) Status: Chronic Problem Specific Plan: Monitor Clinically Problem Text: PAF noted in [place] rates in 70s-80s asa 81mg Metoprolol 12.5 BID with hold parameters. (3) Closed TBI (traumatic brain injury) Status: Acute (4) Ribs, multiple fractures Status: Acute Problem Text: pain reasonably controlled (5) Fracture, thoracic vertebra, compression Status: Acute (6) Fracture of spinous process of thoracic vertebra Status: Acute (7) Right pulmonary contusion Status: Acute Problem Text: history of asthma, has cough, order incentive spirometry (8) SDH (subdural hematoma) Status: Acute (9) HTN (hypertension) Status: Chronic Problem Text: * Lasix * Metoprolol with hold parameters. * monitor. (10) Constipation Plan/VTE VTE Prophylaxis Ordered?: Yes VS, I&O, 24H, Fishbone Vital Signs/I&O Vital Signs Date Time Temp Pulse Resp B/P (MAP) Pulse Ox O2 Delivery O2 Flow Rate FiO2 09/26/16 09:40 82 118/57 09/26/16 08:00 Room Air 09/26/16 06:00 98.3 18 96 I&O- Last 24 Hours up to 6 AM 09/26/16 06:00 Intake Total 840 ml Output Total 2075 ml Balance -1235 ml Laboratory Data 24H LABS Laboratory Tests 2 09/26/16 06:13: Anion Gap 7L, Glomerular Filtration Rate > 60.0, Blood Urea Nitrogen 16, Creatinine 0.54L, Sodium Level 132L, Potassium Level 4.6, Chloride Level 97L, Carbon Dioxide Level 28, Calcium Level 8.6L CBC/BMP Laboratory Tests 09/26/16 06:13 Red Blood Count 2.80 L, Mean Corpuscular Volume 94.4, Mean Corpuscular Hemoglobin 30.9, Mean Corpuscular Hemoglobin Concent 32.7, Red Cell Distribution Width 13.7, Calcium Level 8.6 L Yulia Aguillon Sep 26, 2016 11:56
[2016-09-26 14:15] VITALS: BP 122/60
[2016-09-26 20:00] VITALS: BP 105/53
[2016-09-26] MEDS: **NOTE PATIENT COMMENT** MISC XX SCH (21:00)
[2016-09-27 06:25] VITALS: BP 136/66
[2016-09-27] MEDS: ALBUTEROL 90 MCG/ACT 8GM HFA INHALER INH SCH ×2 (07:40→10:31)
[2016-09-27] MEDS: ADVAIR HFA 115/21MCG INHALER INH SCH ×3 (07:40→19:51)
[2016-09-27] MEDS: LIDOCAINE 5% (LIDODERM) PATCH TD SCH (08:33)
[2016-09-27] MEDS: FUROSEMIDE 20 MG TAB PO SCH (08:34)
[2016-09-27] MEDS: SENNA 8.6 MG TAB (SENOKOT) PO SCH ×2 (08:34→21:38)
[2016-09-27] MEDS: MULTIVITAMINS/MINERALS THERAP 1 TAB PO SCH (08:34)
[2016-09-27] MEDS: ENOXAPARIN 30 MG/0.3 ML SYR (J1650) SC SCH ×2 (08:34→21:37)
[2016-09-27] MEDS: ASPIRIN 81 MG ENTERIC TAB PO SCH (08:34)
[2016-09-27] MEDS: CALCIUM/VITAMIN D 500 MG TAB PO SCH (08:34)
[2016-09-27] MEDS: LORATADINE 10 MG TAB PO SCH (08:35)
[2016-09-27] MEDS: POTASSIUM CHLORIDE 10 MEQ SR TABLET PO SCH (08:35)
[2016-09-27] MEDS: OMEGA-3 1050MG CAPSULE PO SCH (08:35)
[2016-09-27] MEDS: prednisoLONE ACET 1% OPHTH SUSP 5ML OU SCH ×4 (08:35→21:37)
[2016-09-27] MEDS: OMEPRAZOLE 20 MG CAP PO SCH (08:35)
[2016-09-27] MEDS: VITAMIN B COMPLEX/VIT C CAP PO SCH (08:35)
[2016-09-27] MEDS: METOPROLOL SUCC *XL* 12.5MG PER 1/2 TAB (TopROL *XL*) PO SCH ×2 (08:35→21:38)
[2016-09-27] MEDS: VITAMIN D 1,000 INTERNATIONAL UNITS TABLET PO SCH (08:35)
[2016-09-27 14:00] VITALS: BP 109/54
[2016-09-27 20:00] VITALS: BP 117/72
[2016-09-27] MEDS: **NOTE PATIENT COMMENT** MISC XX SCH (21:38)
[2016-09-28 06:00] VITALS: BP 134/74
[2016-09-28] MEDS: ADVAIR HFA 115/21MCG INHALER INH SCH ×2 (07:48→19:40)
[2016-09-28] MEDS: ALBUTEROL 90 MCG/ACT 8GM HFA INHALER INH SCH ×2 (07:48→19:40)
[2016-09-28] MEDS: LORATADINE 10 MG TAB PO SCH (08:36)
[2016-09-28] MEDS: OMEPRAZOLE 20 MG CAP PO SCH (08:36)
[2016-09-28] MEDS: ASPIRIN 81 MG ENTERIC TAB PO SCH (08:36)
[2016-09-28] MEDS: METOPROLOL SUCC *XL* 12.5MG PER 1/2 TAB (TopROL *XL*) PO SCH ×2 (08:37→21:10)
[2016-09-28] MEDS: OMEGA-3 1050MG CAPSULE PO SCH (08:37)
[2016-09-28] MEDS: FUROSEMIDE 20 MG TAB PO SCH (08:37)
[2016-09-28] MEDS: SENNA 8.6 MG TAB (SENOKOT) PO SCH ×2 (08:37→21:10)
[2016-09-28] MEDS: VITAMIN B COMPLEX/VIT C CAP PO SCH (08:38)
[2016-09-28] MEDS: ENOXAPARIN 30 MG/0.3 ML SYR (J1650) SC SCH ×2 (08:38→21:10)
[2016-09-28] MEDS: POTASSIUM CHLORIDE 10 MEQ SR TABLET PO SCH (08:38)
[2016-09-28] MEDS: MULTIVITAMINS/MINERALS THERAP 1 TAB PO SCH (08:39)
[2016-09-28] MEDS: prednisoLONE ACET 1% OPHTH SUSP 5ML OU SCH ×4 (08:39→21:09)
[2016-09-28] MEDS: LIDOCAINE 5% (LIDODERM) PATCH TD SCH (08:39)
[2016-09-28] MEDS: CALCIUM/VITAMIN D 500 MG TAB PO SCH (08:40)
[2016-09-28] MEDS: VITAMIN D 1,000 INTERNATIONAL UNITS TABLET PO SCH (08:42)
[2016-09-28 14:10] VITALS: BP 140/63
[2016-09-28 21:08] VITALS: BP 138/62
[2016-09-28] MEDS: oxyCODONE 5MG TAB PO PRN (21:10)
[2016-09-28] MEDS: **NOTE PATIENT COMMENT** MISC XX SCH (21:11)
[2016-09-29] MEDS: ACETAMINOPHEN TAB 650MG DOSE (2X325MG) PO PRN (02:27)
[2016-09-29 06:00] VITALS: BP 156/69
[2016-09-29 09:05] VITALS: BP 137/62
[2016-09-29 09:07] VITALS: BP 137/62
[2016-09-29] MEDS: METOPROLOL SUCC *XL* 12.5MG PER 1/2 TAB (TopROL *XL*) PO SCH (09:07)
[2016-09-29] MEDS: SENNA 8.6 MG TAB (SENOKOT) PO SCH (09:07)
[2016-09-29] MEDS: VITAMIN D 1,000 INTERNATIONAL UNITS TABLET PO SCH (09:07)
[2016-09-29] MEDS: OMEGA-3 1050MG CAPSULE PO SCH (09:07)
[2016-09-29] MEDS: LORATADINE 10 MG TAB PO SCH (09:07)
[2016-09-29] MEDS: ASPIRIN 81 MG ENTERIC TAB PO SCH (09:07)
[2016-09-29] MEDS: VITAMIN B COMPLEX/VIT C CAP PO SCH (09:07)
[2016-09-29] MEDS: ENOXAPARIN 30 MG/0.3 ML SYR (J1650) SC SCH (09:07)
[2016-09-29] MEDS: FUROSEMIDE 20 MG TAB PO SCH (09:08)
[2016-09-29] MEDS: POTASSIUM CHLORIDE 10 MEQ SR TABLET PO SCH (09:08)
[2016-09-29] MEDS: LIDOCAINE 5% (LIDODERM) PATCH TD SCH (09:08)
[2016-09-29] MEDS: OMEPRAZOLE 20 MG CAP PO SCH (09:08)
[2016-09-29] MEDS: MULTIVITAMINS/MINERALS THERAP 1 TAB PO SCH (09:08)
[2016-09-29] MEDS: CALCIUM/VITAMIN D 500 MG TAB PO SCH (09:08)
[2016-09-29] MEDS: prednisoLONE ACET 1% OPHTH SUSP 5ML OU SCH (09:09)
[2016-09-29] MEDS: ADVAIR HFA 115/21MCG INHALER INH SCH (09:41)
[2016-09-29] MEDS: ALBUTEROL 90 MCG/ACT 8GM HFA INHALER INH SCH (09:41)
[2016-09-29] MEDS ORDERED: OXYC-517 PO (09:51)
[2016-09-29] MEDS ORDERED: TYLE325T5 PO (09:51)
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
== END 2016-09-29 11:50 | disposition home or self-care (01) | DRG 949 ==
LOC: EEVIPCON 11:16 → M PM&R 11:16
PROVIDERS: ADMIT Physical Medicine & Rehabilitation; ATTEND Physical Medicine & Rehabilitation
DX: S06.2X9D Diffuse traumatic brain injury with loss of consciousness of unspecified duration, subsequent encounter (principal); E87.1 Hypo-osmolality and hyponatremia; D64.9 Anemia, unspecified; I48.0 Paroxysmal atrial fibrillation; D75.1 Secondary polycythemia; S22.43XD Multiple fractures of ribs, bilateral, subsequent encounter for fracture with routine healing; M19.90 Unspecified osteoarthritis, unspecified site; Z90.710 Acquired absence of both cervix and uterus; Z88.0 Allergy status to penicillin; Z88.2 Allergy status to sulfonamides; Z88.5 Allergy status to narcotic agent; Z88.8 Allergy status to other drugs, medicaments and biological substances; Z79.82 Long term (current) use of aspirin; Z79.899 Other long term (current) drug therapy; M21.379 Foot drop, unspecified foot; V48.5XXD Car driver injured in noncollision transport accident in traffic accident, subsequent encounter; Y92.410 Unspecified street and highway as the place of occurrence of the external cause; Y93.89 Activity, other specified; Y99.9 Unspecified external cause status; K21.9 Gastro-esophageal reflux disease without esophagitis; Z97.4 Presence of external hearing-aid; Z98.51 Tubal ligation status; H10.33 Unspecified acute conjunctivitis, bilateral; S22.000D Wedge compression fracture of unspecified thoracic vertebra, subsequent encounter for fracture with routine healing; K59.00 Constipation, unspecified; J45.909 Unspecified asthma, uncomplicated; S06.5X9D Traumatic subdural hemorrhage with loss of consciousness of unspecified duration, subsequent encounter; S06.0X9D Concussion with loss of consciousness of unspecified duration, subsequent encounter; S20.219D Contusion of unspecified front wall of thorax, subsequent encounter; I25.10 Atherosclerotic heart disease of native coronary artery without angina pectoris; I10 Essential (primary) hypertension

== ENCOUNTER 2016-10-23 09:15 | Outpatient (RCR) | payer MEDICARE, OTHER ==
[~2016-10-23 09:15] MED LIST: ADVA115A INH; ALBU17IN INH; ASPI81CH PO; CALC1TAB63 PO; COLA100C5 PO; EPIN1DRO OU; EYECAP PO; GARL400T2 PO; GLUC15002 PO; LASI20TA PO; LECI1200 PO; LIDO5DIS41 TD; LORA10TA2 PO; LOVE1INJ2 SC; MELA1TAB PO; MIRA33504 PO; OMEG100011 PO; OXYC-517 PO; PANT40TA2 PO; POTA20TA PO; PREDOPD OU; PROL60SO SC; RANI150T PO; SENN1TAB10 PO; TARTCAP PO; TYLE325T5 PO; VITA200015 PO; VITA500T88 PO; VITATAB11 PO; VITMTA PO; [UNRECOGNIZED DRUG - CODE] PO
== END 2016-10-24 ==
LOC: M PT 09:15
PROVIDERS: ATTEND Internal Medicine
DX: Z51.89 Encounter for other specified aftercare (principal); S22.49XD Multiple fractures of ribs, unspecified side, subsequent encounter for fracture with routine healing
CPT/HCPCS: 97110; 97140; 97162; G8984; G8985

== ENCOUNTER 2016-11-12 09:59 | Outpatient (RCR) | payer MEDICARE, OTHER | END 2016-11-18 17:57 | disposition home or self-care (01) | LOC: M PT 09:59 | PROVIDERS: ATTEND Internal Medicine | DX: Z51.89 Encounter for other specified aftercare (principal); S22.49XD Multiple fractures of ribs, unspecified side, subsequent encounter for fracture with routine healing ==

== ENCOUNTER → 2016-12-04 | Outpatient (CLI) | payer MEDICARE, OTHER ==
[~2016-12-04] MED LIST changes: +E-Z-PAQUE 96% w/w SUSP 176GM BTL As Ordered ONE; +VARIBAR NECTAR 40% w/v 240ML SUSP BTL As Ordered ONE; +VARIBAR PUDDING 40% w/v 230ML TUBE As Ordered ONE
--- NOTE | 2016-12-04 18:03 | REP ---
COOKIE SWALLOW: The procedure was performed under the direct supervision of Dr. Moody. The procedure was performed with Laura Manuel from speech pathology present. 5 mL aliquots of pudding, honey, nectar, solid, mixed, soft and thin consistency barium was administered. With nectar and thin consistency barium there is penetration. A detailed report of this examination will be provided by speech pathology. 1 minute and 26 seconds of fluoroscopy time was utilized for this procedure. Reviewed by KEATON Edouard 12/05/2016 05:05 PEdited and Signed by Trent Moody MD 12/05/2016 05:20 P
== END ==
LOC: M ST 11:07
PROVIDERS: ATTEND Internal Medicine
DX: R13.10 Dysphagia, unspecified (principal)
CPT/HCPCS: 74230; 92611; G8996; G8997; G8998

== ENCOUNTER → 2016-12-28 | Outpatient (REF) | payer MEDICARE ==
[~2016-12-28] MED LIST changes: -E-Z-PAQUE 96% w/w SUSP 176GM BTL As Ordered ONE; -VARIBAR NECTAR 40% w/v 240ML SUSP BTL As Ordered ONE; -VARIBAR PUDDING 40% w/v 230ML TUBE As Ordered ONE
== END ==
LOC: M LAB REF 15:31
PROVIDERS: ATTEND Physician Assistant
DX: N39.0 Urinary tract infection, site not specified (principal)

== ENCOUNTER → 2017-05-27 | Outpatient (REF) | payer MEDICARE, OTHER ==
[2017-05-28 15:25] LABS: FOLATE > 24.0 NG/ML; VITAMIN B12 LEVEL 1633 PG/ML
[2017-05-28 15:58] LABS: FERRITIN 93 NG/ML (8-252); IRON (FE) 44 UG/DL (50-170); PERCENT SATURATION 14.1 % (13.2-45.0); TOTAL IRON BINDING CAPACITY 311 UG/DL (250-450)
== END ==
LOC: M LAB REF 05-28 14:01
DX: D64.9 Anemia, unspecified (principal)
CPT/HCPCS: 82746

== ENCOUNTER → 2017-11-13 | Outpatient (CLI) | payer MEDICARE | LOC: M WHC 12:52 | DX: Z12.31 Encounter for screening mammogram for malignant neoplasm of breast (principal) | CPT/HCPCS: 77067 ==

== ENCOUNTER → 2018-09-22 | Outpatient (CLI) | payer MEDICARE ==
[~2018-09-22] MED LIST changes: -ASPI81CH PO; +ASPI81CH49 PO; +KLOR20TA42 PO; -LASI20TA PO; +LASI20TA3 PO; -LORA10TA2 PO; +LORA10TA3 PO; -PANT40TA2 PO; +PANT40TA3 PO; -POTA20TA PO
--- NOTE | 2018-09-22 15:35 | REP ---
Examination Requested: Cookie Swallow Reason For Exam: Oral pharyngeal dysphasia The procedure was performed by KEATON Fu, under the direct supervision of Dr. Moody. The procedure was performed with Laura Manuel from speech pathology present. 5 ml aliquots of thin, pudding, mixed fruit, soft food, pill, and nectar consistency barium was administered. Flash penetration was noted with both thin and nectar consistencies. The detailed report of this examination will be provided by speech pathology. 2.4 minutes of fluoroscopy time was utilized for this procedure. Reviewed by KEATON Lindsey 09/22/2018 02:50 P Electronically Signed by Trent Moody MD 09/22/2018 03:27 P
--- NOTE | 2018-09-23 15:20 | NUR ---
Pt seem for modified barium swallow study d/t increased difficulty in swallowing. Thin liquids and nectar thick liquids trialed with flash/trace penetration w/o aspiration. Soft solids (canned peaches with thin liquid base) presented with piecemeal swallow but cleared effectively. Pt refused hard solid as she feared that it would get stuck. Barium tablet trialed with H20 wash. Observed tablet to lodge in the upper esophagus with liquid wash x3 swallows to clear. Recommend: Soft/moist solids in small bites w/frequent drinks throughout meal. Regular thin liquids. Recommend: please consider esophagram Addendum: 09/23/18 at 1522 by BRYAN MERAZ SP Amended: Links added.
== END ==
LOC: M ST 11:27
PROVIDERS: ATTEND Internal Medicine
DX: R13.10 Dysphagia, unspecified (principal)

== ENCOUNTER → 2018-10-26 | Outpatient (CLI) | payer MEDICARE ==
[~2018-10-26] MED LIST changes: +E-Z-GAS II EFFERVESCENT PACKET (SODIUM BICARB./CITRIC ACID/SIMETHICONE) As Ordered ONE; +E-Z-HD 98% w/w 340GM SUSP BTL As Ordered ONE; +E-Z-PAQUE 96% w/w SUSP 176GM BTL As Ordered ONE
--- NOTE | 2018-11-11 10:40 | REP ---
Examination Requested: Upper G.I. Series With KUB Reason For Exam: Dysphasia Upper GI The procedure was performed by KEATON Fu, under the direct supervision of Dr. Daniel. The images were reviewed with Dr. Daniel. The director of scout work film shows no organomegaly or pathological masses. The intestinal gas pattern appears normal. Status post sterile left hip replacement. Liquid barium was given in the erect position in order to perform a single contrast upper GI examination. Due to the patient's kyphosis, mobility was extremely limited internal limiting the exam. The oral and pharyngeal stages of deglutition demonstrated flash penetration without aspiration. Esophageal transport is efficient and there is no esophagitis, stricture, or mucosal ring noted. There is no hiatal hernia. Gastroesophageal reflux was visualized to the level of the susie. The stomach patel are normally outlined. The rugal folds are smooth and regular. There is no gastritis, neoplasm, ulcer disease noted. The duodenal patel are normally outlined. The mucosal folds are smooth and regular. There is no duodenitis, peptic ulcer disease, or neoplasm noted. The visualized portion of the proximal small bowel appears normal in course and caliber. Impression: 1. Flash penetration without aspiration. 0.4 minutes of fluoroscopy time was utilized for this procedure. Some fluoroscopic images are performed with last image hold technology. These images require no additional radiation. Reviewed by KEATON Lindsey 10/26/2018 04:01 P Electronically Signed by Alejandro Daniel MD 11/11/2018 10:31 A
== END ==
LOC: M RAD 09:08
PROVIDERS: ATTEND Internal Medicine
DX: R13.10 Dysphagia, unspecified (principal)

== ENCOUNTER → 2018-11-03 | Outpatient (REF) | payer MEDICARE ==
[~2018-11-03] MED LIST changes: -E-Z-GAS II EFFERVESCENT PACKET (SODIUM BICARB./CITRIC ACID/SIMETHICONE) As Ordered ONE; -E-Z-HD 98% w/w 340GM SUSP BTL As Ordered ONE; -E-Z-PAQUE 96% w/w SUSP 176GM BTL As Ordered ONE
== END ==
LOC: M LAB REF 09:38
PROVIDERS: ATTEND Internal Medicine
DX: D50.9 Iron deficiency anemia, unspecified (principal)

== ENCOUNTER 2018-12-02 09:24 | Emergency (ER) | payer MEDICARE ==
[~2018-12-02] VITALS: Ht 132.1 cm; Wt 38.6 kg
[2018-12-02] MEDS ORDERED: ADACEL/BOOSTRIX VACCINE (DIPHTH/PERTUSS/ACELL/TETANUS)0.5ML SYR (90715) IM ONE (10:15)
--- NOTE | 2018-12-02 11:22 | REP ---
CT CERVICAL SPINE WITHOUT CONTRAST: HISTORY: Trauma. There is no acute fracture or subluxation. Disc bulges with associated osteophyte formation are present at the C4-5 through C6-7 levels. There is minimal narrowing of the spinal canal. Uncinate process and/or facet hypertrophy are present at the C3-4 through C6-7 levels. These findings produce minimal narrowing of the neural foramina. The C5-6 intervertebral disc is decreased in height. Vacuum phenomenon is present. These findings are consistent with disc degeneration. There are old compression fractures of the T3 and T4 vertebral bodies. The T4 vertebral body is incompletely seen in the present examination. IMPRESSION: 1. There is no acute fracture or subluxation. There are old compression fractures of the T3 and T4 vertebral bodies. 2. There is cervical spondylosis at the C3-4 through C6-7 levels. Electronically Signed by Angel Goncalves MD 12/02/2018 12:23 P
[2018-12-02 11:40] VITALS: BP 170/81
--- NOTE | 2018-12-02 12:07 | REP ---
CT HEAD WITHOUT CONTRAST: HISTORY: Trauma. COMPARISON: 02/22/2014. An areas of decreased attentuation is present in the right thalamus. This represents an old lacunar infarction__. Areas of decreased attentuation are present in the periventricular and subcortical white matter. This represents small vessel ischemic disease. There is no intraparenchymal hemorrhage, mass, or midline shift. The ventricular system and cortical sulci are dilated consistent with moderate volume loss. There is no extracerebral collection. There is no fracture. Mucosal thickening is present in the ethmoid, right sphenoid, and left frontal sinuses. Soft tissue swelling is present overlying the left frontal bone__. IMPRESSION: 1. Old right thalamic lacunar infarction. 2. Small vessel ischemic disease. 3. Moderate volume loss. Electronically Signed by Angel Goncalves MD 12/02/2018 12:26 P
== END 2018-12-02 11:36 | disposition home or self-care (01) ==
LOC: M ED 09:24
DX: S01.80XA Unspecified open wound of other part of head, initial encounter (principal); M47.812 Spondylosis without myelopathy or radiculopathy, cervical region; Z87.81 Personal history of (healed) traumatic fracture; W01.198A Fall on same level from slipping, tripping and stumbling with subsequent striking against other object, initial encounter; Y92.091 Bathroom in other non-institutional residence as the place of occurrence of the external cause; Z88.0 Allergy status to penicillin; Z88.2 Allergy status to sulfonamides; Z88.5 Allergy status to narcotic agent; Z88.4 Allergy status to anesthetic agent; Z88.3 Allergy status to other anti-infective agents; Z79.899 Other long term (current) drug therapy; Z79.82 Long term (current) use of aspirin